=== PATIENT | male | born 1955 | race Caucasian/White ===

== ENCOUNTER 2020-09-24 08:58 | Outpatient (REF) | payer MEDICARE, MEDICAID, SELFPAY ==
--- NOTE | ~2020-09-24 | MM_ITS ---
EXAMINATION: BONE DENSITOMETRY CLINICAL INDICATION: Screening for osteoporosis. COMPARISON: None (current study represents initial baseline exam). TECHNIQUE: Using a [employer] DXA System (software version: 13.1) manufactured by [employer], dual-energy x-ray absorptiometry was performed of the lumbar spine and left hip. The images are of good technical quality. The image of the left hip has a small high attenuation round artifact left pelvis above the area of measurement. This corresponds to a snap on clothing, confirmed by technologist. Summary results are attached. FINDINGS: AP SPINE L1-L4: BMD 1.559 g/cm2, Z-score 3.2, T-score 2.8, normal. LEFT FEMUR, NECK: BMD 0.931 g/cm2, Z-score 0.0, T-score -1.1, osteopenia. LEFT FEMUR, TOTAL: BMD 1.046 g/cm2, Z-score 0.2, T-score -0.4, normal. IDENTIFIED RISK FACTORS: Height loss, history of fracture (adult). HISTORY OF FRACTURE: Lower leg. MEDICATIONS: Bisphosphonate. MM/XR DEXA axial skeleton IMPRESSION: 1. DIAGNOSIS: Osteopenia based on the lowest T-score value of -1.1 in the femoral neck applying World Health Organization criteria. 2. 10-YEAR FRACTURE RISK PREDICTION, FRAX: Major osteoporotic fracture (clinical spine, forearm, hip or shoulder) 9.0%. Hip fracture 1.2%. 3. Treatment Recommendations: NOF guidelines recommend consideration for treatment in postmenopausal women and men age 50 and older presenting with the following: -A hip or vertebral (clinical or morphometric) fracture. -T-score less than or equal to -2.5 at the femoral neck or spine after appropriate evaluation to exclude secondary causes. -Low bone mass at the hip or spine and a 10-year fracture probability by FRAX of greater than or equal to 3% for hip fracture or greater than or equal to 20% for major osteoporotic fracture based on the [place] adapted WHO algorithm. 4. Other Recommendations: All treatment decisions require clinical judgment and consideration of individual patient factors, including patient preferences, comorbidities, previous drug use, risk factors not captured in the FRAX model (e.g. frailty, falls, vitamin D deficiency, increased bone turnover, interval significant decline in bone density) and possible under or overestimation of fracture risk by FRAX. Additional medical evaluation for secondary cause of low bone mineral density may be appropriate. FUTURE SCAN RECOMMENDATION: People with diagnosed cases of osteoporosis or at high risk for fracture should have regular bone mineral density tests. For patients eligible for Medicare, routine testing is allowed once every 2 years. The testing frequency can be increased to one year for patients who have rapidly progressing disease, those who are receiving or discontinuing medical therapy to restore bone mass, or have additional risk factors.
== END 2020-09-24 08:59 | disposition home or self-care (01) ==
LOC: HO.MAMMO 08:58
PROVIDERS: Visit Provider Internal Medicine Geriatric Medicine
DX: Z13.820 Encounter for screening for osteoporosis (principal); M81.0 Age-related osteoporosis without current pathological fracture; M85.80 Other specified disorders of bone density and structure, unspecified site; Z79.899 Other long term (current) drug therapy; Z87.81 Personal history of (healed) traumatic fracture
CPT/HCPCS: 77080

== ENCOUNTER 2022-09-26 08:37 | Outpatient (REF) | payer MEDICARE, MEDICAID, SELFPAY ==
--- NOTE | ~2022-09-26 | MM_ITS ---
EXAMINATION: BONE DENSITOMETRY CLINICAL INDICATION: Osteoporosis. COMPARISON: Baseline BD dated 09/24/2020. TECHNIQUE: Using a [employer] DXA System (software version: 13.1) manufactured by [employer], dual-energy x-ray absorptiometry was performed of the lumbar spine and left hip. The images are of good technical quality. Summary results are attached. FINDINGS: AP SPINE L1-L3 (excluding L4): The data of L1-L4 has been changed to exclude the L4 vertebral body, because degenerative changes at this level may cause overestimation of lumbar spine density. Current: BMD 1.491 g/cm2, Z-score 2.8, T-score 2.3, normal, 0.3% increase from baseline (<5% change is not significant). Baseline: BMD 1.487 g/cm2. LEFT FEMUR, NECK: Current: BMD 0.965 g/cm2, Z-score 0.4, T-score -0.8, normal. Baseline: BMD 0.931 g/cm2. LEFT FEMUR, TOTAL: Current: BMD 1.040 g/cm2, Z-score 0.2, T-score -0.4, normal, 0.6% decrease from baseline (<5% change is not significant). Baseline: BMD 1.046 g/cm2. IDENTIFIED RISK FACTORS: History of fracture (adult). HISTORY OF FRACTURE: Lower leg. MEDICATIONS: None listed. MM/XR DEXA axial skeleton IMPRESSION: 1. DIAGNOSIS: Normal bone density based on the lowest T-score value of -0.8 in the femoral neck applying World Health Organization criteria. 2. 10-YEAR FRACTURE RISK PREDICTION, FRAX: According to the guidelines, FRAX calculation should only be performed on patients in the osteopenia bone density category. Therefore, FRAX was not performed on this patient. 3. Treatment Recommendations: NOF guidelines recommend consideration for treatment in postmenopausal women and men age 50 and older presenting with the following: -A hip or vertebral (clinical or morphometric) fracture. -T-score less than or equal to -2.5 at the femoral neck or spine after appropriate evaluation to exclude secondary causes. -Low bone mass at the hip or spine and a 10-year fracture probability by FRAX of greater than or equal to 3% for hip fracture or greater than or equal to 20% for major osteoporotic fracture based on the [place] adapted WHO algorithm. 4. Other Recommendations: All treatment decisions require clinical judgment and consideration of individual patient factors, including patient preferences, comorbidities, previous drug use, risk factors not captured in the FRAX model (e.g. frailty, falls, vitamin D deficiency, increased bone turnover, interval significant decline in bone density) and possible under or overestimation of fracture risk by FRAX. FUTURE SCAN RECOMMENDATION: People with diagnosed cases of osteoporosis or at high risk for fracture should have regular bone mineral density tests. For patients eligible for Medicare, routine testing is allowed once every 2 years. The testing frequency can be increased to one year for patients who have rapidly progressing disease, those who are receiving or discontinuing medical therapy to restore bone mass, or have additional risk factors.
== END 2022-09-26 08:38 | disposition home or self-care (01) ==
LOC: HO.MAMMO 08:37
PROVIDERS: PCP Internal Medicine Geriatric Medicine; Visit Provider Internal Medicine Geriatric Medicine
DX: M81.0 Age-related osteoporosis without current pathological fracture (principal)
CPT/HCPCS: 77080

== ENCOUNTER 2022-12-22 09:27 | Outpatient (REF) | payer MEDICARE, MEDICAID, SELFPAY ==
--- NOTE | ~2022-12-22 | XR_ITS ---
EXAMINATION: XR CERVICAL SPINE CLINICAL INFORMATION: Neck pain. COMPARISON: None available. TECHNIQUE: 5 views of the cervical spine were obtained. FINDINGS: There is mild straightening of cervical lordosis. The vertebral heights and alignment is normal. On oblique views there is mild narrowing of right neural foramina from C3-C4 through C5-C6 disc levels. Also visualized is mild narrowing of C3-C4 and and C5-C6 left neural foramina. There is bilateral mild facet joint arthropathy at C2-C3, right C3-C4, moderate left C5-C6 and and moderate right C6-C7 disc levels. No visible acute fracture, dislocation or subluxation seen. The craniovertebral junction and the C2-C3 alignment is normal. The prevertebral soft tissues are normal. XR/XR cervical spine 4V IMPRESSION: Degenerative facet joint arthropathy and narrowing of neural foramina as described above. No visible acute fracture or dislocation seen.
== END 2022-12-22 09:28 | disposition home or self-care (01) ==
LOC: HO.HHCX 09:27
PROVIDERS: Visit Provider Internal Medicine Geriatric Medicine
DX: M54.2 Cervicalgia (principal)
CPT/HCPCS: 72050

== ENCOUNTER 2023-01-01 10:53 | Outpatient (REF) | payer MEDICARE, MEDICAID, SELFPAY ==
[2023-01-02 12:53] LABS: Free Prostate Spec Ag 0.7 ng/mL; Percent Free Prostate Spec Ag 15 % (calc) (>25); Prostate Specific Ag Total 4.6 ng/mL (< OR = 4.0)
== END 2023-01-01 10:54 | disposition home or self-care (01) ==
LOC: HO.CHCLDS 10:53
PROVIDERS: Absent Provider Internal Medicine Geriatric Medicine; PCP Internal Medicine; Visit Provider Urology
DX: Z12.5 Encounter for screening for malignant neoplasm of prostate (principal); R97.20 Elevated prostate specific antigen [PSA]
CPT/HCPCS: 36415; 84154

== ENCOUNTER 2023-01-09 10:59 | Outpatient (REF) | payer MEDICARE, MEDICAID, SELFPAY ==
[2023-01-09 17:59] LABS: MANUAL DIFF FLAG NO
[2023-01-09 18:05] LABS: Basophils Percent Auto 0.8 % (0-2); Eosinophils Absolute Auto 0.2 X10*3/uL (0.0-0.4); Eosinophils Percent Auto 2.9 % (0-4); Hematocrit 46.6 % (42.0-52.0); Hemoglobin 15.9 g/dl (14.0-18.0); Imm Gran Abs Auto 0.01 X10*3/uL (0.00-0.03); Imm Gran Pct Auto 0.2 % (0.0-0.4); Lymphocytes Percent Auto 19.3 % (20-40); Mean Corpuscular HGB Conc 34.1 g/dl (31.0-36.0); Mean Corpuscular Hemoglobin 31.8 pg (27.0-33.0); Mean Corpuscular Volume 93.2 fL (80.0-98.0); Mean Platelet Volume 9.9 fL (9.4-12.4); Monocytes Absolute Auto 0.4 X10*3/uL (0.1-1.2); Monocytes Percent Auto 6.9 % (2-11); Neutrophils Absolute Auto 3.7 x10*3/uL (2.0-8.3); Neutrophils Percent Auto 69.9 % (45-73); Platelet Count 171 X10*3/uL (160-400); Red Cell Distribution Width 12.2 % (11.0-16.0); White Blood Count 5.2 X10*3/uL (4.8-10.8)
[2023-01-09 18:15] LABS: Alanine Aminotransferase 27 U/L (0-40); Albumin Level 4.1 g/dL (3.5-5.0); Alkaline Phosphatase 89 U/L (39-117); Anion Gap 8 (12-20); Aspartate Amino Transferase 20 U/L (5-37); Bilirubin Total 0.4 mg/dL (0.0-1.0); Blood Urea Nitrogen 14 mg/dL (9-16); Calcium 9.4 mg/dL (8.4-10.2); Carbon Dioxide 25 mmol/L (22-29); Chloride 111 mmol/L (96-108); Estimated Glomerular Filt Rate > 60; Glucose Fasting 123 mg/dL (60-99); Potassium 4.2 mmol/L (3.3-5.1); Sodium 140 mmol/L (135-145)
[2023-01-11 10:42] LABS: Absolute CD4 Count 404 cells/uL (490-1740); Absolute CD8 Count 103 cells/uL (180-1170); Absolute Lymphocytes 759 cells/uL (850-3900); CD4 CD8 Ratio 3.93 (0.86-5.00); Percent CD4 Cells 53 % (30-61); Percent CD8 Cells 14 % (12-42)
== END 2023-01-09 11:00 | disposition home or self-care (01) ==
LOC: HO.CHCLDS 10:59
PROVIDERS: Visit Provider Internal Medicine
DX: B20 Human immunodeficiency virus [HIV] disease (principal)
CPT/HCPCS: 36415; 80053; 85025; 86360

== ENCOUNTER 2023-02-19 10:19 | Outpatient (REF) | payer MEDICARE, MEDICAID, SELFPAY ==
[2023-02-19 14:07] LABS: MANUAL DIFF FLAG NO
[2023-02-19 14:16] LABS: Basophils Percent Auto 0.6 % (0-2); Eosinophils Absolute Auto 0.1 X10*3/uL (0.0-0.4); Eosinophils Percent Auto 2.8 % (0-4); Hematocrit 47.5 % (42.0-52.0); Hemoglobin 15.8 g/dl (14.0-18.0); Imm Gran Abs Auto 0.01 X10*3/uL (0.00-0.03); Imm Gran Pct Auto 0.2 % (0.0-0.4); Lymphocytes Absolute Auto 0.9 X10*3/uL (1.2-4.9); Lymphocytes Percent Auto 19.9 % (20-40); Mean Corpuscular HGB Conc 33.3 g/dl (31.0-36.0); Mean Corpuscular Hemoglobin 31.5 pg (27.0-33.0); Mean Corpuscular Volume 94.8 fL (80.0-98.0); Monocytes Absolute Auto 0.3 X10*3/uL (0.1-1.2); Monocytes Percent Auto 6.3 % (2-11); Neutrophils Absolute Auto 3.2 x10*3/uL (2.0-8.3); Neutrophils Percent Auto 70.2 % (45-73); Platelet Count 159 X10*3/uL (160-400); Red Blood Count 5.01 X10*6/uL (4.60-5.80); Red Cell Distribution Width 12.5 % (11.0-16.0); White Blood Count 4.6 X10*3/uL (4.8-10.8)
[2023-02-19 14:34] LABS: Alanine Aminotransferase 26 U/L (0-40); Albumin Level 4.3 g/dL (3.5-5.0); Alkaline Phosphatase 61 U/L (39-117); Anion Gap 16 (12-20); Aspartate Amino Transferase 19 U/L (5-37); Bilirubin Total 0.5 mg/dL (0.0-1.0); Blood Urea Nitrogen 17 mg/dL (9-16); Calcium 9.3 mg/dL (8.4-10.2); Carbon Dioxide 23 mmol/L (22-29); Chloride 110 mmol/L (96-108); Estimated Glomerular Filt Rate > 60; Glucose Fasting 106 mg/dL (60-99); Potassium 3.7 mmol/L (3.3-5.1); Sodium 145 mmol/L (135-145); Total Protein 7.2 g/dL (6.5-8.0)
[2023-02-20 10:38] LABS: Absolute CD4 Count 550 cells/uL (490-1740); Absolute CD8 Count 136 cells/uL (180-1170); Absolute Lymphocytes 899 cells/uL (850-3900); CD4 CD8 Ratio 4.05 (0.86-5.00); Percent CD4 Cells 61 % (30-61); Percent CD8 Cells 15 % (12-42)
[2023-02-21 16:39] LABS: HIV RNA PCR Qn Copies <20 Copies/mL; HIV RNA PCR Qn Log Copies <1.30 Log cps/mL
== END 2023-02-19 10:20 | disposition home or self-care (01) ==
LOC: HO.CHCLDS 10:19
PROVIDERS: Visit Provider Internal Medicine
DX: B20 Human immunodeficiency virus [HIV] disease (principal)
CPT/HCPCS: 36415; 80053; 85025; 86360; 87536; 87900

== ENCOUNTER 2023-07-11 10:09 | Outpatient (REF) | payer MEDICARE, MEDICAID, SELFPAY ==
[2023-07-11 13:26] LABS: Alanine Aminotransferase 34 U/L (0-40); Albumin Level 4.3 g/dL (3.5-5.0); Alkaline Phosphatase 65 U/L (39-117); Anion Gap 9 (12-20); Aspartate Amino Transferase 21 U/L (5-37); Bilirubin Total 0.5 mg/dL (0.0-1.0); Blood Urea Nitrogen 17 mg/dL (9-16); Calcium 9.3 mg/dL (8.4-10.2); Carbon Dioxide 27 mmol/L (22-29); Chloride 109 mmol/L (96-108); Cholesterol 191 mg/dL (<200); Estimated Glomerular Filt Rate > 60; Glucose Random 105 mg/dL (60-115); HDL Cholesterol 30 mg/dL (>40); LDL Cholesterol Calculated 124 mg/dL (<100); Potassium 3.8 mmol/L (3.3-5.1); Sodium 141 mmol/L (135-145); Total Protein 7.3 g/dL (6.5-8.0); Triglycerides 188 mg/dL (<150)
== END 2023-07-11 10:10 | disposition home or self-care (01) ==
LOC: HO.CHCLDS 10:09
PROVIDERS: Visit Provider Internal Medicine Geriatric Medicine
DX: E78.00 Pure hypercholesterolemia, unspecified (principal)
CPT/HCPCS: 36415; 80053; 80061

== ENCOUNTER 2023-07-24 09:36 | Outpatient (REF) | payer MEDICARE, MEDICAID, SELFPAY ==
[2023-07-24 13:53] LABS: MANUAL DIFF FLAG NO
[2023-07-24 13:55] LABS: Basophils Percent Auto 0.9 % (0-2); Eosinophils Absolute Auto 0.1 X10*3/uL (0.0-0.4); Eosinophils Percent Auto 2.6 % (0-4); Hematocrit 47.5 % (42.0-52.0); Hemoglobin 16.1 g/dl (14.0-18.0); Imm Gran Abs Auto 0.01 X10*3/uL (0.00-0.03); Imm Gran Pct Auto 0.2 % (0.0-0.4); Lymphocytes Percent Auto 20.7 % (20-40); Mean Corpuscular HGB Conc 33.9 g/dl (31.0-36.0); Mean Corpuscular Hemoglobin 31.8 pg (27.0-33.0); Mean Corpuscular Volume 93.7 fL (80.0-98.0); Mean Platelet Volume 10.1 fL (9.4-12.4); Monocytes Absolute Auto 0.3 X10*3/uL (0.1-1.2); Monocytes Percent Auto 6.4 % (2-11); Neutrophils Absolute Auto 3.2 x10*3/uL (2.0-8.3); Neutrophils Percent Auto 69.2 % (45-73); Platelet Count 172 X10*3/uL (160-400); Red Blood Count 5.07 X10*6/uL (4.60-5.80); Red Cell Distribution Width 12.8 % (11.0-16.0); White Blood Count 4.7 X10*3/uL (4.8-10.8)
[2023-07-24 14:10] LABS: Alanine Aminotransferase 60 U/L (0-40); Albumin Level 4.4 g/dL (3.5-5.0); Alkaline Phosphatase 72 U/L (39-117); Anion Gap 13 (12-20); Aspartate Amino Transferase 35 U/L (5-37); Bilirubin Total 0.3 mg/dL (0.0-1.0); Blood Urea Nitrogen 19 mg/dL (9-16); Calcium 9.5 mg/dL (8.4-10.2); Carbon Dioxide 27 mmol/L (22-29); Chloride 110 mmol/L (96-108); Estimated Glomerular Filt Rate > 60; Glucose Random 98 mg/dL (60-115); Potassium 3.6 mmol/L (3.3-5.1); Sodium 146 mmol/L (135-145); Total Protein 7.3 g/dL (6.5-8.0)
[2023-07-24 15:43] LABS: CT PCR NOT DETECTED (Not Detect.); NG PCR NOT DETECTED (Not Detect.)
[2023-07-25 07:49] LABS: ~Hepatitis C Antibody Nonreactive (Nonreactive)
[2023-07-25 07:51] LABS: Syphilis Screen Nonreactive (Nonreactive)
[2023-07-26 10:54] LABS: Absolute CD3 Count 629 cells/uL (840-3060); Absolute CD4 Count 494 cells/uL (490-1740); Absolute CD8 Count 138 cells/uL (180-1170); Absolute Lymphocytes 961 cells/uL (850-3900); CD4 CD8 Ratio 3.57 (0.86-5.00); Percent CD3 Cells 65 % (57-85); Percent CD4 Cells 51 % (30-61); Percent CD8 Cells 14 % (12-42)
[2023-07-27 08:04] LABS: TS Negative Control Passed; TS Panel A 0; TS Panel B 0; TS Positive Control Passed; TSpotTB Negative (Negative)
[2023-07-27 11:28] LABS: HIV RNA PCR Qn Copies NOT DETECTED copies/mL (NOT DETECTED); HIV RNA PCR Qn Log Copies NOT DETECTED (NOT DETECTED)
== END 2023-07-24 09:37 | disposition home or self-care (01) ==
LOC: HO.CHCLDS 09:36
PROVIDERS: Internal Medicine Geriatric Medicine; Visit Provider Internal Medicine
DX: B20 Human immunodeficiency virus [HIV] disease (principal)
CPT/HCPCS: 0353U; 36415; 80053; 85025; 86359; 86360; 86481; 86780; 86803; 87536

== ENCOUNTER → 2023-10-09 09:52 | Outpatient (BNVA) | payer MEDICARE, SELFPAY | PROVIDERS: PCP Internal Medicine; Visit Provider Nurse Practitioner ==

== ENCOUNTER 2023-12-28 12:38 | Outpatient (REF) | payer MEDICARE, SELFPAY ==
[2023-12-31 11:28] LABS: Free Prostate Spec Ag 1.3 ng/mL; Percent Free Prostate Spec Ag 17 % (calc) (>25); Prostate Specific Ag Total 7.7 ng/mL (< OR = 4.0)
== END 2023-12-28 12:39 | disposition home or self-care (01) ==
LOC: HO.CHCLDS 12:38
PROVIDERS: Visit Provider Urology
DX: R97.20 Elevated prostate specific antigen [PSA] (principal)
CPT/HCPCS: 36415; 84154

== ENCOUNTER 2024-01-16 13:00 | Emergency (ER) | payer MEDICARE, SELFPAY ==
--- NOTE | 2024-01-16 13:03 | ED.URI ---
HPI - URI/Sore Throat General Chief Complaint: General Medical Stated Complaint: sore throat Time Seen by Provider: 01/16/24 13:06 Source: patient, RN notes reviewed and old records reviewed Mode of arrival: ambulatory History of Present Illness ED Provider: Pau Floyd PA-C HPI Narrative: 68-year-old male with a past medical history gout, GERD, depression, anxiety, HLD, HTN, HIV, presenting to the ED c/o sore throat x 1 week w/painful swallowing. Admits to COVID-19 positive contacts. denies cough, SOB, CP, inability/difficulty swallowing, cough. MD elicited complaint: sore throat Related Data Home Medications ?Medication ?Instructions ?Recorded ?Confirmed bictegravir 50 mg-emtricitabine 1 tab PO QAM 10/09/23 200 mg-tenofovir alafenam 25 mg tablet (Biktarvy) cholecalciferol (vitamin D3) 50 50 mcg PO DAILY 10/09/23 mcg (2,000 unit) capsule clonazepam 0.5 mg tablet 0.5 mg PO DAILY 10/09/23 cyclobenzaprine 10 mg tablet 10 mg PO TID 10/09/23 fluvastatin 20 mg capsule 20 mg PO DAILY 10/09/23 hydrochlorothiazide 12.5 mg tablet 12.5 mg PO DAILY 10/09/23 losartan 100 mg tablet 100 mg PO DAILY 10/09/23 omeprazole 20 mg capsule,delayed 20 mg PO DAILY 10/09/23 release sildenafil 100 mg tablet (Viagra) 100 mg PO DAILY PRN 10/09/23 Previous Rx's ?Medication ?Instructions ?Recorded bisacodyl 5 mg tablet,delayed 10 mg (2 x 5 mg) PO BEDTIME 2 days 10/09/23 release (Dulcolax (bisacodyl)) #4 tabs peg 3350-electrolytes 236 240 ml PO Q10M 1 day #4,000 mL 10/09/23 gram-22.74 gram-6.74 gram-5.86 gram solution (Golytely) amoxicillin 875 mg-potassium 1 tab PO BID 7 days #14 tabs 01/16/24 clavulanate 125 mg tablet Allergies Allergy/AdvReac Type Severity Reaction Status Date / Time No Known Drug Allergies Allergy Unknown none Verified 01/16/24 13:06 Review of Systems Review of Systems: Yes all other systems are reviewed and are negative Constitutional: Constitutional: Reports as per [facility] Past Medical History Attestation statement: The following information was validated with the patient. Source: old records reviewed Surgical History H/O colonoscopy S/P TURP Social History Social History Alcohol intake: current Alcohol intake frequency: holidays/special occasions only Alcohol type: beer Patient Tobacco Use Status: Never used Tobacco Advance Directives: Yes Advance Directives Information Provided: No Advance Directives on File: No Physical Exam Vital Signs: Vital Signs: Last Vital Signs Temp 98 F 01/16/24 14:59 Pulse 89 01/16/24 14:59 Resp 19 01/16/24 14:59 BP 178/79 H 01/16/24 14:59 Pulse Ox 98 01/16/24 14:59 O2 Del Method Room Air 01/16/24 14:59 BMI result Body Mass Index 26.6 Const: General: cooperative, healthy appearing and no acute distress Orientation/consciousness: patient oriented x3 Limitations: no limitations HEENT: Head: Yes normal to inspection and Yes atraumatic Ears: hearing grossly normal bilaterally and mastoids normal General nose exam: Normal external nose present Face and sinus: Yes normal facial exam Throat: Yes uvula midline, Yes abnormal tonsil (erythema, swelling, no exudates), No peritonsillar mass, Yes posterior oropharynx abnormal (Erythematous, mild swelling), No uvula laterally displaced and No uvular edema Eyes: General: appearance normal, both eyes and all related structures EOM: EOMs intact bilaterally Neck: Neck: Yes normal visual inspection, Yes no meningeal signs and No anterior neck swelling Resp: Effort & Inspection: normal respiratory effort, no respiratory distress and no stridor Cardio: Rate: regular rate Skin: Rashes: no rashes Wounds: no wounds Neuro: General: patient oriented x3, tone normal and no meningeal signs Cranial nerves: Yes CN's II-XII intact bilaterally Gait exam (Neuro): Normal gait present Extrem: General: Yes normal to inspection Course Course Course Narrative: -[id number]--rapid strep, COVID/flu/RSV negative. However clinically patient with strep pharyngitis will treat with antibiotics Results discussed with patient including worrisome signs and symptoms and strict return precautions, and when to return to the emergency department. They verbalized understanding and feel safe for discharge at this time. Medical Decision Making Medical Decision Making [facility] Narrative: 68-year-old male with a past medical history gout, GERD, depression, anxiety, HLD, HTN, HIV, presenting to the ED c/o sore throat x 1 week w/painful swallowing. On exam HTNsive, +posterior oropharyngeal erythema w/tonsilar erythema and swelling, no exudates, uvula midline. No resp distress, handling secretions. Concern for strep pharyngitis vs viral syndrome. No evidence of CONFIGURATION MANAGEMENT SPECIALIST/retropharyngeal abscess. Plan: Rapid strep, viral testing Please refer to course for remaining clinical decision making, interpretation of labs/imaging results, and discussions with consultants and/or family members. Differential Diagnosis Differential Diagnoses: The differential diagnosis associated with the presentation includes As above Lab Data [facility] Lab Attestation statement: I reviewed the patient's lab results. Labs: Lab Results 01/16/24 Range/Units 13:14 Influenza Type A (PCR) NEGATIVE (Negative) Influenza Type B (PCR) NEGATIVE (Negative) RSV RNA Qual (PCR) NEGATIVE (Negative) SARS-CoV-2 RNA (RT-PCR) NEGATIVE (Negative) S. pyogenes GrpA JULIO C Negative (Negative) External Record Review External record reviewed: Inpatient record, Office record, Outpatient record, Prior outpatient labs, Prior outpatient radiology, Primary care record and Outside ED record Tests considered The following testing was considered but not selected: As above Prescription Management I considered prescription management with: Pain Medication and Antibiotic Discharge Plan Discharge Clinical Impression: Pharyngitis Patient Disposition: Home, Self-Care Instructions: Pharyngitis (ED) Additional Instructions: You tested negative for COVID, flu, RSV, and strep throat, however your throat looks infected. Augmentin as an antibiotic please take as prescribed Gargle with warm salt water new line take Tylenol /Motrin as needed If symptoms persist or worsen return to the ED Prescriptions: New amoxicillin-pot clavulanate 875-125 mg tablet 1 tab PO BID 7 Days Qty: 14 0RF No Action peg 3350-electrolytes [Golytely] 236-22.74-6.74 -5.86 gram recon soln 240 ml PO Q10M 1 Days Qty: 4000 0RF Rx Instructions: until fecal effluent is clear; do not exceed a total volume of 2,000 mL bisacodyl [Dulcolax (bisacodyl)] 5 mg tablet,delayed release (DR/EC) 10 mg PO BEDTIME 2 Days Qty: 4 0RF Biktarvy 50-200-25 mg tablet 1 tab PO QAM omeprazole 20 mg capsule,delayed release(DR/EC) 20 mg PO DAILY hydrochlorothiazide 12.5 mg tablet 12.5 mg PO DAILY losartan 100 mg tablet 100 mg PO DAILY clonazepam 0.5 mg tablet 0.5 mg PO DAILY cholecalciferol (vitamin D3) 50 mcg (2,000 unit) capsule 50 mcg PO DAILY fluvastatin 20 mg capsule 20 mg PO DAILY sildenafil [Viagra] 100 mg tablet 100 mg PO DAILY PRN cyclobenzaprine 10 mg tablet 10 mg PO TID Referrals: Venita,MD Federico [Primary Care Provider] - Interventions: ED Discharge Assessment Last Done: 01/16/24 14:59 Discharge Date/Time: 01/16/24 15:05 Print Language: Indonesian
[2024-01-16 13:04] VITALS: BP 174/106; PULSE 89; RESP 19; TEMP 36.6; O2SAT 98; BMI 26.6
[2024-01-16 13:45] LABS: IDNOW Serial# 08D9AD1C; Strep A Nucleic Acid Negative (Negative)
[2024-01-16 14:04] LABS: Influenza A PCR NEGATIVE (Negative); Influenza B PCR NEGATIVE (Negative); Resp Syncy Virus RNA Qual PCR NEGATIVE (Negative); SARS COV2 PCR INHOUSE NEGATIVE (Negative)
[2024-01-16 14:59] VITALS: BP 178/79; PULSE 89; RESP 19; TEMP 36.6; O2SAT 98
== END 2024-01-16 15:05 | disposition home or self-care (01) ==
LOC: HO.ED 15:02
PROVIDERS: Physician Assistant; Emergency Provider Student in an Organized Health Care Education/Training Program; PCP Internal Medicine Geriatric Medicine
DX: J02.9 Acute pharyngitis, unspecified (principal); Z79.899 Other long term (current) drug therapy; Z03.818 Encounter for observation for suspected exposure to other biological agents ruled out; B20 Human immunodeficiency virus [HIV] disease; I10 Essential (primary) hypertension; E78.00 Pure hypercholesterolemia, unspecified
CPT/HCPCS: 0241U; 87651; 99282; 99283

== ENCOUNTER 2024-02-11 11:00 | Outpatient (REF) | payer MEDICARE, SELFPAY ==
[2024-02-11 11:30] LABS: MANUAL DIFF FLAG NO
[2024-02-11 12:26] LABS: Basophils Percent Auto 0.5 % (0-2); Eosinophils Absolute Auto 0.2 X10*3/uL (0.0-0.4); Eosinophils Percent Auto 3.4 % (0-4); Hematocrit 46.3 % (42.0-52.0); Hemoglobin 15.7 g/dl (14.0-18.0); Imm Gran Abs Auto 0.02 X10*3/uL (0.00-0.03); Imm Gran Pct Auto 0.5 % (0.0-0.4); Lymphocytes Absolute Auto 0.9 X10*3/uL (1.2-4.9); Lymphocytes Percent Auto 19.3 % (20-40); Mean Corpuscular HGB Conc 33.9 g/dl (31.0-36.0); Mean Corpuscular Hemoglobin 31.5 pg (27.0-33.0); Mean Corpuscular Volume 92.8 fL (80.0-98.0); Mean Platelet Volume 9.8 fL (9.4-12.4); Monocytes Absolute Auto 0.3 X10*3/uL (0.1-1.2); Neutrophils Absolute Auto 3.1 x10*3/uL (2.0-8.3); Neutrophils Percent Auto 69.3 % (45-73); Platelet Count 141 X10*3/uL (160-400); Red Blood Count 4.99 X10*6/uL (4.60-5.80); Red Cell Distribution Width 12.4 % (11.0-16.0); White Blood Count 4.4 X10*3/uL (4.8-10.8)
[2024-02-11 12:43] LABS: Estimated Average Glucose 117 mg/dL; Hemoglobin A1C 147.0321 umol/L; Hemoglobin A1c % 5.7 % (<6.0); Total Hemoglobin (HGBA1C) 3844.4709 umol/L
[2024-02-11 12:58] LABS: Alanine Aminotransferase 61 U/L (0-40); Albumin Level 4.3 g/dL (3.5-5.0); Alkaline Phosphatase 63 U/L (39-117); Anion Gap 10 (12-20); Aspartate Amino Transferase 39 U/L (5-37); Bilirubin Total 0.5 mg/dL (0.0-1.0); Blood Urea Nitrogen 18 mg/dL (9-16); Calcium 9.9 mg/dL (8.4-10.2); Carbon Dioxide 29 mmol/L (22-29); Chloride 107 mmol/L (96-108); Estimated Glomerular Filt Rate 58; Glucose Random 108 mg/dL (60-115); Potassium 3.8 mmol/L (3.3-5.1); Sodium 142 mmol/L (135-145)
[2024-02-11 13:17] LABS: Hepatitis A Antibody IgG REACTIVE (Nonreactive); ~Hepatitis A Antibody IgG 11.61 S/CO (0.00-0.99)
[2024-02-11 13:19] LABS: HBS Num1 0.09 mIU/mL (0-7.99); HBc Num1 0.12 S/CO (0.00-0.79); HBsAGNum1 0.45 S/CO (0.00-0.99); Hepatitis B Core Antibody Nonreactive (Nonreactive); Hepatitis B Surface Antigen Negative (Negative); ~Hepatitis B Surface Antibody NONREACTIVE (Nonreactive)
[2024-02-12 11:34] LABS: Free Prostate Spec Ag 1.2 ng/mL; Percent Free Prostate Spec Ag 16 % (calc) (>25); Prostate Specific Ag Total 7.5 ng/mL (< OR = 4.0)
[2024-02-12 13:12] LABS: HIV RNA PCR Qn Copies NOT DETECTED copies/mL (NOT DETECTED); HIV RNA PCR Qn Log Copies NOT DETECTED (NOT DETECTED)
[2024-02-12 18:54] LABS: Rubeola IgG (Measles) >300.00 AU/mL
[2024-02-15 14:48] LABS: Toxoplasma IgG Antibody <7.20 IU/mL; Toxoplasma IgM Antibody <8.00 AU/mL
[2024-02-15 18:24] LABS: Absolute CD3 Count 660 cells/uL (840-3060); Absolute CD4 Count 534 cells/uL (490-1740); Absolute CD8 Count 144 cells/uL (180-1170); Absolute Lymphocytes 820 cells/uL (850-3900); Percent CD3 Cells 81 % (57-85); Percent CD4 Cells 65 % (30-61); Percent CD8 Cells 18 % (12-42)
== END 2024-02-11 11:01 | disposition home or self-care (01) ==
LOC: HO.LAB 11:00
PROVIDERS: Absent Provider Urology; PCP Internal Medicine Geriatric Medicine; Visit Provider Internal Medicine
DX: B20 Human immunodeficiency virus [HIV] disease (principal); R97.20 Elevated prostate specific antigen [PSA]; Z13.1 Encounter for screening for diabetes mellitus
CPT/HCPCS: 36415; 80053; 83036; 84154; 85025; 86359; 86360; 86704; 86706; 86708; 86735; 86762; 86765; 86777; 86778; 86787; 87340; 87536

== ENCOUNTER 2024-03-04 08:42 | Day surgery (SDC) | payer MEDICARE, SELFPAY ==
[2024-02-29 14:57] VITALS: BMI 27.8
[2024-03-04 09:18] VITALS: BMI 27.1
[2024-03-04 09:22] VITALS: BP 179/100; PULSE 87; RESP 15; TEMP 36.9; O2SAT 97
[2024-03-04] MEDS: Lactated Ringers 1,000 ML 50 ML IVCONT (09:31)
--- NOTE | 2024-03-04 10:30 | P.HPSUR_ITS ---
Pre-Procedural Eval Section A - 24 Hr Update-Section A only Date of Service: 03/04/24 Section B - Complete if H&P > 30 days Chief Complaint: Family history of colon polyps, Relevant Family History (Specify if Yes): No Relevant Social History: None Present Medications: see Short Stay Collaborative assessment Medical History: Significant History (HIV< BPH, depression, HLP ) History of Previous Operations: Relevant previous surgery/procedure and date(s) (H/O colonoscopy S/P TURP) Allergies: Allergies Allergy/AdvReac Type Severity Reaction Status Date / Time No Known Drug Allergies Allergy Unknown none Verified 03/04/24 09:17 Review of Systems Sugical H&P ROS: Negative: Constitution, Cardiovascular, Respiratory, Neurological, Psychiatric, Hem-Onc, Allergic/Immunologic, Gastrointestinal, Genitourinary, Musculoskeletal, Integumentary, Endocrine and Eyes/E ars/Nose/Throat Exam Surgical H&P Exam: Normal: HEENT, Normal: Heart, Normal: Lungs, Normal: Extremities, Normal: Abdomen, Normal: Skin and Normal: Neurological Plan Diagnosis/Plan: Unchanged I have reviewed the history and physical and performed a pertinent physical examination on my patient. No changes have occurred unless specified. Time Spent With Patient Time: Total time managing care of this patient today ____ minutes.
--- NOTE | 2024-03-04 10:43 | HO.ANESPROP2 ---
HPI - Anesthesia Eval Consult details Narrative: 68M for screening colon PMFSH Active Problems Active Problems: All Active Problems Family history of polyps in the colon (Acute) Pre-op examination (Acute) Erectile dysfunction (Acute) BPH (benign prostatic hyperplasia) (Acute) Gout (Acute) Osteoporosis (Acute) GERD (gastroesophageal reflux disease) (Acute) Depression with anxiety (Acute) High cholesterol (Acute) Hypertension (Acute) HIV disease (Acute) Past Medical History Medical History History of lumbar puncture Depression with anxiety Elevated cholesterol HTN (hypertension) HIV (human immunodeficiency virus infection) Osteoporosis GERD (gastroesophageal reflux disease) Erectile dysfunction BPH (benign prostatic hyperplasia) Family History Family history of problems with anesthesia: No Surgical History Surgical History Hx of right inguinal hernia repair Hx of left inguinal hernia repair Hx of arthroscopy of left knee Hx of excision of mass Hx of prostate biopsy H/O colonoscopy S/P TURP History of Problems with Anesthesia: No Social History Social History Alcohol intake: current Alcohol intake frequency: holidays/special occasions only Alcohol type: beer Patient Tobacco Use Status: Never used Tobacco Use of substances other than those prescribed or required for medical reasons: No Are you DNR?: No Advance Directives: No Advance Directives Information Provided: Yes Recently lost weight without trying: No Meds Allergies Allergy/AdvReac Type Severity Reaction Status Date / Time No Known Drug Allergies Allergy Unknown none Verified 03/04/24 09:17 Active Medications: Current Medications Lactated Ringer's (Lr) 1,000 mls @ 50 mls/hr IVCONT .Q20H MAYANK Last Admin: 03/04/24 09:31 Dose: 50 mls/hr Home Medications ?Medication ?Instructions ?Recorded ?Confirmed ?Last Taken ?Type bictegravir 50 mg-emtricitabine 1 tab PO QAM 10/09/23 03/04/24 Unknown History 200 mg-tenofovir alafenam 25 mg tablet (Biktarvy) cholecalciferol (vitamin D3) 50 50 mcg PO DAILY 10/09/23 03/04/24 Unknown History mcg (2,000 unit) capsule clonazepam 0.5 mg tablet 0.5 mg PO DAILY 10/09/23 03/04/24 Unknown History cyclobenzaprine 10 mg tablet 10 mg PO TID 10/09/23 03/04/24 Unknown History hydrochlorothiazide 12.5 mg tablet 12.5 mg PO DAILY 10/09/23 03/04/24 Unknown History losartan 100 mg tablet 100 mg PO DAILY 10/09/23 03/04/24 Unknown History omeprazole 20 mg capsule,delayed 20 mg PO DAILY 10/09/23 03/04/24 Unknown History release sildenafil 100 mg tablet (Viagra) 100 mg PO DAILY PRN Erectile 10/09/23 03/04/24 Unknown History Dysfunction rosuvastatin 5 mg tablet 5 mg PO DAILY 02/29/24 03/04/24 Unknown History clonazepam 1 mg tablet 1 mg PO BEDTIME PRN Anxiety 03/04/24 03/04/24 Unknown History Exam Height,Weight and Vital Signs: Height 5 ft 8 in Weight 178 lb Last Vital Signs Temp 98.4 F 03/04/24 09:22 Pulse 87 03/04/24 09:22 Resp 15 03/04/24 09:22 BP 179/100 H 03/04/24 09:22 Pulse Ox 97 03/04/24 09:22 O2 Del Method Room Air 03/04/24 09:22 Airway Mallampati Class: II TM Dist: >3cm Neck ROM: Full Loose/Missing/Broken Teeth: Yes Assessment and Plan Assessment Anesthesia Assessment: Anesthesia Plan Discussed and Chart Reviewed Final Anesthetic Review Family History of Problems with Anesthesia: No History of Problems with Anesthesia: No NPO: Yes ASA Class: III Final Preanesthetic Review: No Changes in Pt Med Stat, Meds/Allgs Chart Reviewed, Consent Obtained/Reviewed and Anes Risks/Benef Reviewed Patient Risk: Intermediate Procedure Risk: Low Anesthetic Plan Anesthetic Plan: MAC: Disposition: Standard PACU
--- NOTE | 2024-03-04 11:02 | P.OPN-COLO_ITS ---
Colonoscopy Operative Note Operative Note Date of Service: 03/04/24 Narrative: Operative Information Procedure Description: Colonoscopy Indication: screening Anesthesia: MAC COLONOSCOPY Instrument: Olympus variable stiffness pediatric scope 190L Colonoscopy Monitoring: Vital signs and clinical assessment, continuous EKG monitoring, Pulse oximetry, Carbon Dioxide monitoring and blood pressure monitoring were done throughout the procedure. Colon withdrawal time was 12 minutes. Procedure: The patient was placed in the left lateral decubitis position and pre-procedure medications were administered. After a digital rectal examination of the ano-rectum, the video colonoscope was inserted into the rectum and advanced through the colon to the cecum/TI. The colonoscope was slowly withdrawn in a retrograde panoramic fashion and the colon mucosa was carefully examined including a retroflexed view of the rectum. Findings and interventions are described below. Procedure Difficulty: easy Findings: Terminal Ileum-normal Cecum:normal Ascending Colon: 3-4 mm sessile polyp removed with cold forceps Transverse Colon -normal Descending Colon:normal Sigmoid Colon: moderate diverticulosis Rectum: Retroflexion with small internal hemorrhoids seen, grade I Anorectum - normal Intervention: cold forceps Colon preparation: [place] Bowel Preparation Scale Right colon; 1-2 Transverse colon: 2 Left colon; 2 (0 = Unprepared colon segment with mucosa not seen due to solid stool that cannot be cleared. 1 = Portion of mucosa of the colon segment seen, but other areas of the colon segment not well seen due to staining, residual stool and/or opaque liquid. 2 = Minor amount of residual staining, small fragments of stool and/or opaque liquid, but mucosa of colon segment seen well. 3 = Entire mucosa of colon segment seen well with no residual staining, small fr agments of stool or opaque liquid) Impression and Post Procedure Diagnosis: diverticulosis colon polyp internal hemorrhoids Plan: High fiber diet leaflet Avoid straining at stool, epsom salts and sitz bath, anusol supps or cream Repeat Colonoscopy in 5 years due to some areas of fair prep on the right or earlier if clinically indicated Above findings were reviewed with the patient and relevant handouts were provided if indicated.
[2024-03-04 11:05] VITALS: BP 155/63; PULSE 78; RESP 16; TEMP 36.5; O2SAT 97
[2024-03-04 11:20] VITALS: BP 168/90; PULSE 73; RESP 16; TEMP 36.6; O2SAT 95
== END 2024-03-04 11:50 | disposition home or self-care (01) ==
PROVIDERS: PCP Internal Medicine Geriatric Medicine; Visit Provider Internal Medicine Gastroenterology
PROC: 0DJD8ZZ Inspection of Lower Intestinal Tract, Via Natural or Artificial Opening Endoscopic (ICD-10-PCS; CPT 45378; principal; 2024-03-04 10:40)
DX: Z12.11 Encounter for screening for malignant neoplasm of colon (principal); D12.2 Benign neoplasm of ascending colon; K57.30 Diverticulosis of large intestine without perforation or abscess without bleeding; K64.0 First degree hemorrhoids; Z83.719 Family history of colon polyps, unspecified; B20 Human immunodeficiency virus [HIV] disease; I10 Essential (primary) hypertension; E78.5 Hyperlipidemia, unspecified; K21.9 Gastro-esophageal reflux disease without esophagitis; F41.8 Other specified anxiety disorders; Z79.899 Other long term (current) drug therapy; Z79.02 Long term (current) use of antithrombotics/antiplatelets
CPT/HCPCS: 45380; 88305; J2003; J2704

== ENCOUNTER → 2024-03-04 08:42 | Outpatient (BNV) | payer MEDICARE, SELFPAY | PROVIDERS: PCP Internal Medicine Geriatric Medicine; Visit Provider Internal Medicine Gastroenterology | DX: Z12.11 Encounter for screening for malignant neoplasm of colon (principal); D12.2 Benign neoplasm of ascending colon; K57.30 Diverticulosis of large intestine without perforation or abscess without bleeding; K64.0 First degree hemorrhoids | CPT/HCPCS: 45380 ==

== ENCOUNTER 2024-08-19 10:03 | Outpatient (REF) | payer MEDICARE, SELFPAY ==
--- OUTSIDE RECORDS SUMMARY | 2024-08-19 11:27 | XMS_ITS | Encounter Summary ---
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 - Main Lab [address] [place] [address] Akbar Gonzalez MD [address] [place] [address] Elevated prostate specific antigen (PSA) Social History Tobacco Use Types Packs/Day Years Used Date Smoking Tobacco: Never Assessed Sex and Gender Information Value Date Recorded Sex Assigned at Not on file Legal Sex Male 10:25 AM EST Gender Identity Not on file Sexual Orientation Not on file documented as of this encounter Plan of Treatment Not on file documented as of this encounter Procedures Procedure Name Priority Date/Time Associated Diagnosis Comments AP OUTSIDE CONSULT Routine 04/01/2024 Elevated prostate specific antigen (PSA) documented in this encounter Results * Anatomic pathology outside consult (04/01/2024) Final Diagnosis A. Prostate, Left Middle Malone (Core Biospy): - Benign prostate tissue. B. Prostate, Left Lateral Malone (Core Biospy): - Benign Prostate tissue. C. 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 - Tumor continuously involves 20% of 1 of 1 tissue core. D. Prostate, Left Lateral Middle (Core Biospy): - Prostatic acinar adenocarcinoma, grade group 1, Guadalupe score (3+3=6). - Tumor continuously involves 5% of 1 of 1 tissue core. - High grade prostatic intraepithelial neoplasia (HGPIN). E. Prostate, Left Middle Base (Core Biospy): - Benign prostate tissue. F. Prostate, Left Lateral Base (Core Biospy): - Benign prostate tissue. G. Prostate, Left Peripheral Zone Lesion (Core Biopsy): - Benign prostate tissue. H. Prostate, Left Transition Zone Lesion (Core Biopsy): - Benign prostate tissue. I. Prostate, Right Middle Malone (Core Biospy): - Benign stroma only. J. Prostate, Right Lateral Malone (Core Biospy): - Benign prostate tissue. K. Prostate, Right Middle Middle (Core Biospy): - Benign prostate tissue. L. Prostate, Right Lateral Middle (Core Biospy): - Benign prostate tissue. M. Prostate, Right Middle Base (Core Biospy): - Prostatic acinar adenocarcinoma, grade group 3, Lodi score (4+3=7). - Percentage pattern 4: 70%. - Tumor continuously involves 60% of 1 of 1 tissue core. - PIN4 supports diagnosis. N. Prostate, Right Lateral Base (Core Biospy): - Prostatic acinar adenocarcinoma, grade group 3, Lodi score (4+3=7). - Percentage pattern 4: 30%. - Tumor continuously involves 30% of 1 of 1 tissue core. O. Prostate, Right Peripheral Zone Lesion (Core Biopsy): - Prostatic acinar adenocarcinoma, grade group 3, Lodi score (4+3=7). - Percentage pattern 4: 90%. - Tumor continuously involves 0,0,30% of 1 of 3 tissue cores. - High grade prostatic intraepithelial neoplasia (HGPIN). 04/09/2024 9:26 AM [facility] Comment PIN4 performed at [facility], [address], [place] [address], CLIA # [id number] 04/09/2024 9:26 AM [facility] Clinical Information Elevated PSA R97.20 PSA: 7.5 (02/11/24) [id number] 04/09/2024 9:26 AM [facility] Gross Description A. Prostate, Left Middle Malone Biopsy: Received, properly labeled, are two H and E stained slides and two unstained slides. B. Prostate, Left Lateral Malone Biopsy: Received, properly labeled, are two H and E stained slides and two unstained slides. C. Prostate, Left Middle Middle Biopsy: Received, properly labeled, are two H and E stained slides and two unstained slides. D. Prostate, Left Lateral Middle Biopsy: Received, properly labeled, are two H and E stained slides and two unstained slides. E. Prostate, Left Middle Base Biopsy: Received, properly labeled, are two H and E stained slides and two unstained slides. F. Prostate, Left Lateral Base Biopsy: Received, properly labeled, are two H and E stained slides and two unstained slides. G. Prostate, Left Peripheral Zone Lesion Biopsy: Received, properly labeled, are two H and E stained slides and two unstained slides. H. Prostate, Left Transition Zone Lesion Biopsy: Received, properly labeled, are two H and E stained slides and two unstained slides. I. Prostate, Right Middle Malone Biopsy: Received, properly labeled, are two H and E stained slides and two unstained slides. J. Prostate, Right Lateral Malone Biopsy: Received, properly labeled, are two H and E stained slides and two unstained slides. K. Prostate, Right Middle Middle Biopsy: Received, properly labeled, are two H and E stained slides and two unstained slides. L. Prostate, Right Lateral Middle Biopsy: Received, properly labeled, are two H and E stained slides and two unstained slides. M. Prostate, Right Middle Base Biopsy: Received, properly labeled, are two H and E stained slides and two unstained slides. N. Prostate, Right Lateral Base Biopsy: Received, properly labeled, are two H and E stained slides and two unstained slides. O. Prostate, Right Peripheral Zone Lesion: Received, properly labeled, are two H and E stained slides and two unstained slides. /al 04/09/2024 9:26 AM [facility] Disclaimer Unless otherwise specified, all tissue is 10% NB formalin fixed and paraffin embedded. Technical pathology services provided by [facility] at [address] [place] [address] [address], [place] [address] (CLIA #[id number]/Karen Cantrell MD, Orthopedic Shoe Maker) 04/09/2024 9:26 AM [facility] Tissue Prostate / Unknown 04/01/20242023 3:45 PM EST Tissue specimen (specimen) Prostate / Unknown 04/01/2024 04/02/2024 3: 49 PM EST Tissue specimen (specimen) Prostate / Unknown 04/01/2024 04/02/2024 3: 49 PM EST Tissue specimen (specimen) Prostate / Unknown 04/01/2024 04/02/2024 3: 49 PM EST Tissue specimen (specimen) Prostate / Unknown 04/01/2024 04/02/2024 3: 49 PM EST Tissue specimen (specimen) Prostate / Unknown 04/01/2024 04/02/2024 3: 49 PM EST Tissue specimen (specimen) Prostate / Unknown 04/01/2024 04/02/2024 3: 49 PM EST Tissue specimen (specimen) Prostate / Unknown 04/01/2024 04/02/2024 3: 49 PM EST Tissue specimen (specimen) Prostate / Unknown 04/01/2024 04/02/2024 3: 49 PM EST Tissue specimen (specimen) Prostate / Unknown 04/01/2024 04/02/2024 3: 49 PM EST Tissue specimen (specimen) Prostate / Unknown 04/01/2024 04/02/2024 3: 49 PM EST Tissue specimen (specimen) Prostate / Unknown 04/01/2024 04/02/2024 3: 49 PM EST Tissue specimen (specimen) Prostate / Unknown 04/01/2024 04/02/2024 3: 49 PM EST Tissue specimen (specimen) Prostate / Unknown 04/01/2024 04/02/2024 3: 49 PM EST Tissue specimen (specimen) Prostate / Unknown 04/01/2024 04/02/2024 3: 49 PM EST us Akbar Gonzalez MD LAB PATHOLOGY ORDERABLES Final Result [facility] [address] [place] [address], documented in this encounter Visit Diagnoses Diagnosis Elevated prostate specific antigen (PSA) documented in this encounter
--- OUTSIDE RECORDS SUMMARY | 2024-08-19 11:27 | XMS_ITS | Clinical Summary ---
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 Name Role Phone Unavailable Primary Care Provider Unavailabl e Social History Tobacco Use Types Packs/Day Years Used Date Smoking Tobacco: Never Assessed Sex and Gender Information Value Date Recorded Sex Assigned at Not on file Legal Sex Male 10:25 AM EST Gender Identity Not on file Sexual Orientation Not on file Plan of Treatment Health Maintenance Due Date Last Done Comments Meningococcal ACWY Vaccine (1 - Risk 2-dose series) 1955 COVID-19 Vaccine (#1) 1958 MMR Vaccines (1 of 2 - Risk 2-dose series) 1971 Hepatitis A Vaccines (1 of 2 - Risk 2-dose series) 1972 Zoster Vaccines (1 of 2) 1972 Pneumococcal Vaccine: 50+ Years (2 of 2 - PCV) 02/01/2007 02/01/2006 RSV Immunization Adult Patients (1 - Risk 60-74 years 1-dose series) 2013 DTaP,Tdap,and Td Vaccines (2 - Td or Tdap) 09/16/2018 09/16/2008 Abdominal Aortic Aneurysm (AAA) Screen 04/06/2022 Cholesterol Screening (Lipid Panel) 04/06/2022 Colorectal Cancer Screening: Colonoscopy 04/06/2022 Depression Screening 04/06/2022 Falls Risk Assessment 04/06/2022 Hepatitis C Screening 04/06/2022 Social Influencers of Health Screening 04/06/2022 Hypertension/CHF/CAD Annual BMP Blood Test 04/08/2022 Influenza Vaccine (Season Ended) 2024 01/03/2015, 02/02/2014, 01/07/2013, Additional history exists Hepatitis B Vaccines Completed 07/24/2012, 03/13/2012, 02/13/2012 HIB Vaccines Aged Out No longer eligi ble based on patient's age to complete this topic HPV Vaccines Aged Out No longer eligi ble based on patient's age to complete this topic IPV Vaccines Aged Out No longer eligi ble based on patient's age to complete this topic Meningococcal B Vaccine Aged Out No l onger eligible based on patient's age to complete this topic RSV Immunization Patients Under 20 months Aged Out No longer eligible based on patient's age to complete this topic Varicella Vaccines Aged Out No longer eligible based on patient's age to complete this topic Insurance [employer]
[2024-08-19 14:18] LABS: Appearance Urine Turbid; Color Urine Yellow; Glucose Urine UA Negative (Negative); Leukocyte Esterase Urine Negative (Negative); Nitrite Urine Negative (Negative); PH 5.5 (5.0-9.0); Specific Gravity - Urine 1.025 (1.005-1.025); Urine Blood Negative (Negative); Urine Ketones Trace mg/dL (Negative); Urine Protein Negative (Neg-Trace)
[2024-08-19 14:25] LABS: MANUAL DIFF FLAG NO
[2024-08-19 14:30] LABS: Basophils Percent Auto 0.5 % (0-2); Eosinophils Absolute Auto 0.1 X10*3/uL (0.0-0.4); Eosinophils Percent Auto 2.7 % (0-4); Hematocrit 47.1 % (42.0-52.0); Imm Gran Abs Auto 0.01 X10*3/uL (0.00-0.03); Imm Gran Pct Auto 0.2 % (0.0-0.4); Lymphocytes Absolute Auto 0.9 X10*3/uL (1.2-4.9); Lymphocytes Percent Auto 21.9 % (20-40); Mean Corpuscular Hemoglobin 31.5 pg (27.0-33.0); Mean Corpuscular Volume 92.7 fL (80.0-98.0); Mean Platelet Volume 9.9 fL (9.4-12.4); Monocytes Absolute Auto 0.3 X10*3/uL (0.1-1.2); Monocytes Percent Auto 6.6 % (2-11); Neutrophils Absolute Auto 2.8 x10*3/uL (2.0-8.3); Neutrophils Percent Auto 68.1 % (45-73); Platelet Count 182 X10*3/uL (160-400); Red Blood Count 5.08 X10*6/uL (4.60-5.80); Red Cell Distribution Width 12.5 % (11.0-16.0); White Blood Count 4.1 X10*3/uL (4.8-10.8)
[2024-08-19 14:33] LABS: Bacteria Urine None Seen (None Seen); Calcium Oxalate Crystals Urine Present; Hyaline Casts Urine 0-2 /LPF (0-2); RBC Urine 0-2 /HPF (0-2); Squamous Epithelial Cell Urine 0-2 /HPF (0-2); WBC Urine 0-5 /HPF (0-5)
[2024-08-19 15:21] LABS: Alanine Aminotransferase 78 U/L (0-40); Albumin Level 4.1 g/dL (3.5-5.0); Alkaline Phosphatase 68 U/L (39-117); Anion Gap 11 (12-20); Aspartate Amino Transferase 40 U/L (5-37); Bilirubin Total 0.4 mg/dL (0.0-1.0); Blood Urea Nitrogen 17 mg/dL (9-16); Carbon Dioxide 27 mmol/L (22-29); Chloride 108 mmol/L (96-108); Cholesterol 146 mg/dL (<200); Estimated Glomerular Filt Rate > 60; Glucose Random 114 mg/dL (60-115); HDL Cholesterol 28 mg/dL (>40); LDL Cholesterol Calculated 80 mg/dL (<100); Potassium 3.9 mmol/L (3.3-5.1); Sodium 142 mmol/L (135-145); Triglycerides 191 mg/dL (<150)
[2024-08-19 15:31] LABS: Reflex LDLD? No
[2024-08-20 08:04] LABS: Syphilis Screen Nonreactive (Nonreactive)
[2024-08-20 21:19] LABS: HIV RNA PCR Qn Copies 41 copies/mL (NOT DETECTED); HIV RNA PCR Qn Log Copies 1.61 (NOT DETECTED)
[2024-08-27 14:02] LABS: Absolute CD3 Count 671 cells/uL (840-3060); Absolute CD4 Count 522 cells/uL (490-1740); Absolute CD8 Count 146 cells/uL (180-1170); Absolute Lymphocytes 837 cells/uL (850-3900); CD4 CD8 Ratio 3.57 (0.86-5.00); Percent CD3 Cells 80 % (57-85); Percent CD4 Cells 62 % (30-61); Percent CD8 Cells 17 % (12-42)
== END 2024-08-19 10:04 | disposition home or self-care (01) ==
LOC: HO.CHCLDS 10:03
PROVIDERS: Visit Provider Internal Medicine
DX: B20 Human immunodeficiency virus [HIV] disease (principal)
CPT/HCPCS: 36415; 80053; 80061; 81001; 85025; 86359; 86360; 86780; 87536

== ENCOUNTER 2025-02-10 10:53 | Outpatient (REF) | payer OTHER, SELFPAY ==
[2025-02-10 14:48] LABS: MANUAL DIFF FLAG NO
[2025-02-10 14:52] LABS: Hematocrit 46.8 % (42.0-52.0); Hemoglobin 15.6 g/dl (14.0-18.0); Imm Gran Abs Auto 0.01 X10*3/uL (0.00-0.03); Imm Gran Pct Auto 0.2 % (0.0-0.4); Lymphocytes Absolute Auto 0.9 X10*3/uL (1.2-4.9); Mean Corpuscular HGB Conc 33.3 g/dl (31.0-36.0); Mean Corpuscular Hemoglobin 30.5 pg (27.0-33.0); Mean Corpuscular Volume 91.6 fL (80.0-98.0); NRBC Abs Auto 0.000 X10*3/uL (0.0-0.012); NRBC Pct Auto 0.0 /100WBC (0.0-0.2); Platelet Count 172 X10*3/uL (160-400); Red Blood Count 5.11 X10*6/uL (4.60-5.80); White Blood Count 4.3 X10*3/uL (4.8-10.8)
[2025-02-10 18:13] LABS: Alanine Aminotransferase 49 U/L (0-40); Albumin Level 4.6 g/dL (3.5-5.0); Alkaline Phosphatase 76 U/L (39-117); Anion Gap 10 (12-20); Aspartate Amino Transferase 30 U/L (5-37); Blood Urea Nitrogen 17 mg/dL (9-16); Calcium 9.4 mg/dL (8.4-10.2); Carbon Dioxide 26 mmol/L (22-29); Chloride 111 mmol/L (96-108); Estimated Glomerular Filt Rate 59; Potassium 3.9 mmol/L (3.3-5.1); Sodium 143 mmol/L (135-145); Total Protein 7.2 g/dL (6.5-8.0)
[2025-02-12 00:12] LABS: HIV RNA PCR Qn Copies 128 copies/mL (NOT DETECTED); HIV RNA PCR Qn Log Copies 2.11 (NOT DETECTED)
[2025-02-15 12:12] LABS: Absolute CD3 Count 656 cells/uL (840-3060); Absolute CD8 Count 166 cells/uL (180-1170); Percent CD3 Cells 73 % (57-85); Percent CD8 Cells 19 % (12-42)
== END 2025-02-10 10:54 | disposition home or self-care (01) ==
LOC: HO.CHCLDS 10:53
PROVIDERS: Visit Provider Internal Medicine
DX: B20 Human immunodeficiency virus [HIV] disease (principal)
CPT/HCPCS: 36415; 80053; 85025; 86359; 86360; 87536

== ENCOUNTER 2025-02-19 09:28 | Emergency (ER) | payer OTHER, SELFPAY ==
--- NOTE | ~2025-02-19 | US_ITS ---
EXAMINATION: US ABDOMEN LIMITED HISTORY: RUQ elevated LFTs TECHNIQUE: Real-time grayscale ultrasound imaging of the gallbladder was performed and images were reviewed. COMPARISON: Correlation is made with a CT of the abdomen and pelvis with contrast performed immediately prior. FINDINGS: The gallbladder is unremarkable, without evidence of calculi, wall thickening, or pericholecystic fluid. There is no sonographic Mcdaniel sign. The common bile duct is mildly dilated, measuring 10 mm diameter. US/US abdomen limited IMPRESSION: No evidence of cholelithiasis. Mildly dilated common bile duct. If there is clinical concern for choledocholithiasis, MRCP could be performed. Electronically signed by: Richard Virk MD 02/19/2025 12:23 PM EDT
--- NOTE | ~2025-02-19 | CT_ITS ---
EXAMINATION: CT ABDOMEN PELVIS WITH IV CONTRAST HISTORY: abdominal pain/bloating COMPARISON: There are no prior studies for available comparison. TECHNIQUE: CT scan of the abdomen and pelvis was performed following administration of 85 mL Omnipaque 350 using standard departmental protocol. Coronal and sagittal reformatted images were generated and reviewed. This CT exam was performed with one or more of the following dose reduction techniques: automated exposure control, adjustment of the mA and/or kV according to patient size, use of iterative reconstruction technique. DLP: 518 mGy-cm FINDINGS: LOWER CHEST: Mild subsegmental atelectasis at the lung bases. CARDIOVASCULATURE: The heart is normal in size. There is no pericardial effusion. LIVER: Mild fatty infiltration. The liver is normal in size and contour. 2 low-attenuation liver lesions in the left lobe segment 2. The largest measures 1.3 cm axial image 10 series 3 and has low Hounsfield units suggestive of a cyst. Smaller 6.6 mm low-attenuation lesion axial image 12 series 3 difficult to accurately characterize due to small size but probably represents a small cyst as well. The hepatic and portal veins are patent. GALLBLADDER / BILE DUCTS: The gallbladder is upper normal in size. No gallstones or inflammatory changes seen. There is no intra biliary ductal dilatation. Slightly dilated common bile duct measuring 9 mm. SPLEEN: The spleen is normal in size. No focal splenic lesion is identified. PANCREAS: Mild dilatation of the pancreatic duct measuring up to 5.6 mm. Pancreas otherwise unremarkable. ADRENAL GLANDS: Within normal limits. KIDNEYS/RETROPERITONEUM: Ill-defined low-attenuation area in the lower pole of the right kidney measuring 1.5 cm axial image 43 series 3. This is not suggestive of a cyst. Area of infection. Differential would include renal mass and vascular changes/infarct. Second similar area of heterogeneous low-attenuation in the medial upper pole of the right kidney example axial image 32 series 3. There are several round low-attenuation left renal lesions. Largest measures 1.6 cm in the upper pole and is compatible with a cyst. Smaller lesions difficult to accurately characterize due to small size but probably represent small cysts as well. No renal calculi are identified. There is no hydronephrosis. LYMPH NODES: No abdominal or pelvic lymphadenopathy. VASCULATURE: Atherosclerotic disease. No aneurysm. Renal arteries and veins are patent. MESENTERY/PERITONEUM: No free fluid. No masses. There is no free intraperitoneal gas. STOMACH: Not optimally distended and not well evaluated. Difficult to exclude mild circumferential wall or fold thickening of the proximal stomach. SMALL BOWEL: Small bowel diverticulum. No evidence of small bowel diverticulitis. COLON: Diverticulosis of the colon. Mild wall thickening of the mid and distal left colon and fat stranding. There is also increased vascularity. Appearance questionable for mild diverticulitis or colitis. Large bowel are otherwise normal. APPENDIX: Normal. URINARY BLADDER/PELVIC ORGANS: The urinary bladder is unremarkable. Prostate gland appears a smaller than removed. No pelvic mass. BONES / SOFT TISSUES: Postsurgical changes in the left inguinal region. Diastases of the rectus muscles and paraumbilical hernia containing fat. Degenerative changes of the spine and hips. CT/CT abdomen pelvis w IV con IMPRESSION: Diverticulosis of the colon and question mild diverticulitis or colitis of the left colon. Mild dilatation of the common bile duct measuring 9 mm and main pancreatic duct measuring up to 5.6 mm. Recommend further evaluation with MRI of the abdomen with and without IV contrast and MRCP to exclude ampullary lesion. 1.5 cm low-attenuation area in the lower pole of the right kidney not compatible with a cyst. Differential would include infection/pyelonephritis, mass and infarct. This can be evaluated at time of abdominal MRI as well. Mild fatty infiltration of the liver. Probable liver and left renal cysts. Electronically signed by: Britney Vázquez MD 02/19/2025 12:40 PM EDT
[2025-02-19 09:34] VITALS: BP 210/110; PULSE 97; O2SAT 97
[2025-02-19 09:35] VITALS: BP 186/85; PULSE 79; RESP 20; TEMP 36.8; O2SAT 97; BMI 27.9
--- NOTE | 2025-02-19 09:38 | ED_ITS ---
HPI - General Adult General Chief complaint: Abdominal Pain Stated complaint: abd pain, distended Time Seen by Provider: 02/19/25 09:35 Source: patient and EMS Mode of arrival: EMS Limitations: no limitations History of Present Illness ED Provider: JOSEY LYMAN PA-C HPI narrative: 69 year old male with pmhx significant for HTN, HIV, HLD, GERD, gout, depression, anxiety, BPH and prostate cancer s/p prostatectomy a few months ago at [facility] presents to the ED via EMS today for evaluation of abdominal pain since last night. Patient reports cooking/eating a boiled dinner consisting of ham, cabbage, potatoes and carrots. He then took a nap and awoke with acute onset of diffuse abdominal pain/bloating. Associated nausea, no vomiting. Last BM yesterday. Denies recent constipation/diarrhea. No known history of diverticulitis. Denies etoh consumption or tobacco use. Patient expresses frustration regarding recent prostatectomy - reports complication of abdominal wall hernia post surgery. He has followed up with multiple doctors following his surgery and feels he is being bounced around. Further surgical history includes right and left inguinal hernia repair. Denies any other abdominal surgeries. Reports history of colonoscopy few years ago. Related Data Home Medications ?Medication ?Instructions ?Recorded ?Confirmed bictegravir 50 mg-emtricitabine 1 tab PO QAM 10/09/23 03/04/24 200 mg-tenofovir alafenam 25 mg tablet (Biktarvy) cholecalciferol (vitamin D3) 50 50 mcg PO DAILY 03/04/24 mcg (2,000 unit) capsule clonazepam 0.5 mg tablet 0.5 mg PO DAILY 10/09/2304/15 cyclobenzaprine 10 mg tablet 10 mg PO TID 10/09/2304/15 hydrochlorothiazide 12.5 mg tablet 12.5 mg PO DAILY 03/04/24 losartan 100 mg tablet 100 mg PO DAILY 10/09/2304/15 omeprazole 20 mg capsule,delayed 20 mg PO DAILY 03/04/24 release sildenafil 100 mg tablet (Viagra) 100 mg PO DAILY PRN Erectile 10/09/23 03/04/24 Dysfunction rosuvastatin 5 mg tablet 5 mg PO DAILY 11/08/24 11/12 /24 clonazepam 1 mg tablet 1 mg PO BEDTIME PRN Anxiety 03/04/24 03/04/24 Previous Rx's ?Medication ?Instructions ?Recorded amoxicillin 875 mg-potassium 1 tab PO BID 7 days #14 t abs 02/19/25 clavulanate 125 mg tablet Allergies Allergy/AdvReac Type Severity Reaction Status Date / Time No Known Drug Allergies Allergy Unknown none Verified 02/19/25 09:41 Review of Systems 2 Review of Systems: Yes all other systems are reviewed and are negative [facility] Past Medical History Attestation statement: The following information was validated with the patient. Source: old records reviewed and nursing notes reviewed Medical History History of lumbar puncture Depression with anxiety Elevated cholesterol HTN (hypertension) HIV (human immunodeficiency virus infection) Osteoporosis GERD (gastroesophageal reflux disease) Erectile dysfunction BPH (benign prostatic hyperplasia) Surgical History Hx of right inguinal hernia repair Hx of left inguinal hernia repair Hx of arthroscopy of left knee Hx of excision of mass Hx of prostate biopsy H/O colonoscopy S/P TURP Social History Social History Alcohol intake: current Alcohol intake frequency: holidays/special occasions only Alcohol type: beer Patient Tobacco Use Status: Never used Tobacco Advance Directives: No Advance Directives Information Provided: No Physical Exam ED Vital Signs: Vital Signs - 24 hr 02/19/25 09:35 02/19/25 10:30 02/19/25 11:43 Temperature 98.3 F 98.2 F Pulse Rate 79 84 Respiratory Rate 20 16 18 Blood Pressure 186/85 H 160/77 H Pulse Oximetry 97 98 Oxygen Delivery Method Room Air Aerosol Mask Oxygen Flow Rate 2 02/19/25 13:41 02/19/25 14:14 Temperature 97.6 F 97.6 F Pulse Rate 92 92 Respiratory Rate 18 18 Blood Pressure 177/95 H 177/95 H Pulse Oximetry 96 96 Oxygen Delivery Method Room Air Room Air Oxygen Flow Rate BMI result Body Mass Index 27.9 hypertensive, vitals are otherwise wnl General: Uncomfortable appearing, holding abdomen Skin: Warm, dry, intact. No rashes or lesions. Head: Normocephalic, atraumatic. EENT: Hearing is intact b/l. Conjunctiva clear. PERRLA. EOM intact. Moist mucous membranes.? Cardiac: Chest wall symmetric. RRR Lungs: Normal respiratory effort without accessory muscle use. CTA bilaterally Abdomen: Distended, soft, diffusely tender to palpation without rebound or guarding, there is a reducible incisional hernia, no other palpable abdominal masses, active bowel sounds x4 Ext: Upper and lower extremities atraumatic, without tenderness, deformity, swelling or erythema Neuro: AOx3. Normal speech Course Course Course Narrative: 1008 - [facility] records requested 1142 --CBC without leukocytosis however there is neutrophil predominance. No anemia, H and H stable. Chemistry without acute electrolyte abnormality requiring intervention. Renal function appears to be around baseline, may be a bit dehydrated. IV fluids ordered. Random glucose 138, no anion gap. Transaminitis with elevated T and direct bili ? Biliary obstruction. Lipase WNL > abdominal ultrasound and CT pending. ua pending. > medicated with morphine, Zofran 1400 -- Right upper quadrant ultrasound without evidence of cholelithiasis. No evidence of acute cholecystitis. There is mild dilation of the common bile duct, recommending MRCP. CT abdomen showing diverticulosis with question mild diverticulitis/colitis of the left colon. There is also mild dilation of the CBD measuring 9 mm and main pancreatic duct measuring 5.6 mm, recommending further eval with abdominal MRI/MRCP to exclude ampullary lesion. There is also a 1.5 cm low-attenuation area in the lower pole of the right kidney not compatible with a cyst, mass can not be ruled out. I discussed all workup results with patient. I have even provided him a printout of his imaging results. I discussed the need to stay for admission to the hospital for MRCP/further evaluation, given his concerning history of cancer with recent prostatectomy. He verbalizes understanding however is declining admission at this time and would like to leave AMA as he has a food order waiting for him at home. I stressed the importance of staying for this testing. Patient is choosing to leave AMA and with informed refusal. Patient was advised reasoning for hospital admission and provided with a full explanation of the rationale. The risks of leaving were explained to the patient and include, but not are not limited to, worsening of known or currently on known conditions, permanent disability, and from undiagnosed or untreated conditions. The patient has the capacity to make this decision and has the capacity to understand the clinical situation and my explanation of the risks of refusing. The patient voluntarily accepts these risks. Patient was given the opportunity to ask questions and reconsider. Given his symptoms/ diverticulitis on scan, I will start him on Augmentin - this has been sent to the pharmacy. I have also provided him with a GI referral and stressed that he can return to the ED for workup/treatment at any point. Medications Administered Discontinued Medications Generic Name Dose Route Start Last Admin Trade Name Sarah Beth PRN Reason Stop Dose Admin Sodium Chloride 1,000 mls @ 999 mls/hr 02/19/25 10:00 02/19/25 10:31 Ns IV 02/19/25 11:00 999 mls/hr .Q1H1M MAYANK Administration Iohexol 100 ml 02/19/25 11:58 02/19/25 11:58 Iohexol 350 Mg/Ml 100 Ml Infus..Btl IV 02/19/25 11:59 85 ml ONCE ONE Administration Morphine Sulfate 5 mg 02/19/25 09:54 02/19/25 10:30 Morphine Sulfate 10 Mg/Ml Cartridge IVPUSH 02/19/25 09:55 5 mg ONCE ONE Administration Protocol Ondansetron HCl 4 mg 02/19/25 09:54 02/19/25 10:30 Ondansetron Hcl 4 Mg/2 Ml Vial IVPUSH 02/19/25 09:55 4 mg ONCE ONE Administration Medical Decision Making Medical Decision Making [facility] Narrative: 69 year old male with pmhx significant for HTN, HIV, HLD, GERD, gout, depression, anxiety, BPH and prostate cancer s/p prostatectomy a few months ago at [facility] presents to the ED via EMS today for evaluation of abdominal pain since last night. hypertensive, vitals are otherwise wnl. Differential diagnosis includes diverticulitis, diverticulosis, abdominal adhesions, constipation, bowel obstruction, abdominal wall hernia, hepatitis, gastroenteritis, colitis, metastatic disease Less likely acute abdomen, bowel perforation, appendicitis Plan for labs, UA, imaging, pain control/IVF, re-evaluation. Differential Diagnosis Differential Diagnoses: The differential diagnosis associated with the presentation includes as above. Admission/Observation Consideration of admission/observation: Escalation of care including admission/observation considered patient declining admission Lab Data [facility] Lab Attestation statement: I reviewed the patient's lab results. as above. 10/30/25 10:26 02/19/25 10:26 Labs: Lab Results 02/19/25 Range/Units 10:26 WBC 7.7 (4.8-10.8) X10*3/uL RBC 5.04 (4.60-5.80) X10*6/uL Hgb 15.8 (14.0-18.0) g/dl Hct 46.8 (42.0-52.0) % MCV 92.9 (80.0-98.0) fL MCH 31.3 (27.0-33.0) pg MCHC 33.8 (31.0-36.0) g/dl RDW 12.5 (11.0-16.0) % Plt Count 142 L (160-400) X10*3/uL MPV 9.4 (9.4-12.4) fL Immature Gran % (Auto) 0.4 (0.0-0.4) % Neut % (Auto) 87.1 H (45-73) % Lymph % (Auto) 6.9 L (20-40) % [place] % (Auto) 4.8 (2-11) % Eos % (Auto) 0.4 (0-4) % Baso % (Auto) 0.4 (0-2) % Lymph # (Auto) 0.5 L (1.2-4.9) X10*3/uL [place] # (Auto) 0.4 (0.1-1.2) X10*3/uL Eos # (Auto) 0.0 (0.0-0.4) X10*3/uL Baso # (Auto) 0.0 (0.0-0.2) X10*3/uL Abs Immat Gran (auto) 0.03 (0.00-0.03) X10*3/uL Absolute Neuts (auto) 6.7 (2.0-8.3) x10*3/uL Absolute Nucleated RBC 0.000 (0.0-0.012) X10*3/uL Nucleated RBC % (auto) 0.0 (0.0-0.2) /100WBC Sodium 142 (135-145) mmol/L Potassium 3.7 (3.3-5.1) mmol/L Chloride 106 (96-108) mmol/L Carbon Dioxide 29 (22-29) mmol/L Anion Gap 11 L (12-20) BUN 24 H (9-16) mg/dL Creatinine 1.33 (0.5-1.4) mg/dL Estim Creat Clear Calc 53.5 Estimated GFR 53 Random Glucose 138 H (60-115) mg/dL Calcium 10.0 D (8.4-10.2) mg/dL Magnesium 2.0 (1.6-2.6) mg/dL Total Bilirubin 1.3 H (0.0-1.0) mg/dL Direct Bilirubin 0.7 H (0.0-0.5) mg/dL AST 260 H (5-37) U/L ALT 186 H (0-40) U/L Alkaline Phosphatase 89 (39-117) U/L Total Protein 7.3 (6.5-8.0) g/dL Albumin 4.6 (3.5-5.0) g/dL Lipase 20 (8-78) U/L Independent Interpretation I performed an independent interpretation of an: Ultrasound and CT Scan Radiology Impression Discussion of test interpretation with radiology: I have reviewed the radiologist's reading. Radiologist Impression: Procedure(s): CT abdomen pelvis w IV con Accession Number(s): [id number] cc: Federico Nathan MD; Josey Lyman~ Report Number: [id number]: Total DLP = 518.00 mGy-cm Reason for Exam: abdominal pain/bloating EXAMINATION: CT ABDOMEN PELVIS WITH IV CONTRAST HISTORY: abdominal pain/bloating COMPARISON: There are no prior studies for available comparison. TECHNIQUE: CT scan of the abdomen and pelvis was performed following administration of 85 mL Omnipaque 350 using standard departmental protocol. Coronal and sagittal reformatted images were generated and reviewed. This CT exam was performed with one or more of the following dose reduction techniques: automated exposure control, adjustment of the mA and/or kV according to patient size, use of iterative reconstruction technique. DLP: 518 mGy-cm FINDINGS: LOWER CHEST: Mild subsegmental atelectasis at the lung bases. CARDIOVASCULATURE: The heart is normal in size. There is no pericardial effusion. LIVER: Mild fatty infiltration. The liver is normal in size and contour. 2 low-attenuation liver lesions in the left lobe segment 2. The largest measures 1.3 cm axial image 10 series 3 and has low Hounsfield units suggestive of a cyst. Smaller 6.6 mm low-attenuation lesion axial image 12 series 3 difficult to accurately characterize due to small size but probably represents a small cyst as well. The hepatic and portal veins are patent. GALLBLADDER / BILE DUCTS: The gallbladder is upper normal in size. No gallstones or inflammatory changes seen. There is no intra biliary ductal dilatation. Slightly dilated common bile duct measuring 9 mm. SPLEEN: The spleen is normal in size. No focal splenic lesion is identified. PANCREAS: Mild dilatation of the pancreatic duct measuring up to 5.6 mm. Pancreas otherwise unremarkable. ADRENAL GLANDS: Within normal limits. KIDNEYS/RETROPERITONEUM: Ill-defined low-attenuation area in the lower pole of the right kidney measuring 1.5 cm axial image 43 series 3. This is not suggestive of a cyst. Area of infection. Differential would include renal mass and vascular changes/infarct. Second similar area of heterogeneous low-attenuation in the medial upper pole of the right kidney example axial image 32 series 3. There are several round low-attenuation left renal lesions. Largest measures 1.6 cm in the upper pole and is compatible with a cyst. Smaller lesions difficult to accurately characterize due to small size but probably represent small cysts as well. No renal calculi are identified. There is no hydronephrosis. LYMPH NODES: No abdominal or pelvic lymphadenopathy. VASCULATURE: Atherosclerotic disease. No aneurysm. Renal arteries and veins are patent. MESENTERY/PERITONEUM: No free fluid. No masses. There is no free intraperitoneal gas. STOMACH: Not optimally distended and not well evaluated. Difficult to exclude mild circumferential wall or fold thickening of the proximal stomach. SMALL BOWEL: Small bowel diverticulum. No evidence of small bowel diverticulitis. COLON: Diverticulosis of the colon. Mild wall thickening of the mid and distal left colon and fat stranding. There is also increased vascularity. Appearance questionable for mild diverticulitis or colitis. Large bowel are otherwise normal. APPENDIX: Normal. URINARY BLADDER/PELVIC ORGANS: The urinary bladder is unremarkable. Prostate gland appears a smaller than removed. No pelvic mass. BONES / SOFT TISSUES: Postsurgical changes in the left inguinal region. Diastases of the rectus muscles and paraumbilical hernia containing fat. Degenerative changes of the spine and hips. CT/CT abdomen pelvis w IV con IMPRESSION: Diverticulosis of the colon and question mild diverticulitis or colitis of the left colon. Mild dilatation of the common bile duct measuring 9 mm and main pancreatic duct measuring up to 5.6 mm. Recommend further evaluation with MRI of the abdomen with and without IV contrast and MRCP to exclude ampullary lesion. 1.5 cm low-attenuation area in the lower pole of the right kidney not compatible with a cyst. Differential would include infection/pyelonephritis, mass and infarct. This can be evaluated at time of abdominal MRI as well. Mild fatty infiltration of the liver. Probable liver and left renal cysts. Electronically signed by: Britney Vázquez MD 02/19/2025 12:40 PM EDT RP Procedure(s): US abdomen limited Accession Number(s): [id number] cc: Name,Federico HERRERA; Josey Lyman~ Reason for Exam: RUQ elevated LFTs EXAMINATION: US ABDOMEN LIMITED HISTORY: RUQ elevated LFTs TECHNIQUE: Real-time grayscale ultrasound imaging of the gallbladder was performed and images were reviewed. COMPARISON: Correlation is made with a CT of the abdomen and pelvis with contrast performed immediately prior. FINDINGS: The gallbladder is unremarkable, without evidence of calculi, wall thickening, or pericholecystic fluid. There is no sonographic Mcdaniel sign. The common bile duct is mildly dilated, measuring 10 mm diameter. US/US abdomen limited IMPRESSION: No evidence of cholelithiasis. Mildly dilated common bile duct. If there is clinical concern for choledocholithiasis, MRCP could be performed. Electronically signed by: Richard Virk MD 02/19/2025 12:23 PM [employer] Independent Historian Clinical information obtained from an independent historian. History obtained from or confirmed by: EMS External Record Review External record reviewed: Inpatient record, Office record, Outpatient record and Prior outpatient labs Prescription Management I considered prescription management with: Pain Medication and Antibiotic Chronic Conditions Patient?s care impacted by: Cancer Social Determinants Patient?s care significantly limited by Social Determinants of Health including: Other Social Determinant of Health Critical Care Time Critical Care Time Critical Care Time: Yes Total Critical Care Time: 31 Attestation: Critical care time in the amount of 31 minutes has been provided to the patient in terms of direct patient care, frequent reevaluation, review and interpretation of medical data and results, and management of potentially life- threatening conditions. This is all outside of any medical procedures. Discharge Plan Discharge Clinical Impression: Diverticulitis Patient Disposition: Left Against Medical Advice Instructions: MRCP (Magnetic Resonance Cholangiopancreatography) (DC) Additional Instructions: You were evaluated in the ED today for abdominal pain. Your blood work shows elevated liver enzymes. As discussed, the CT scan of your abdomen shows dilation of your common bile duct and pancreatic duct. The recommendation for further evaluation is MRI of the abdomen/MRCP to exclude lesion. There is also a lesion to your right kidney that needs to be further evaluated with MRI. Given your history of cancer, these findings are concerning. All findings were clearly discussed with you and the recommendation is to admit you to our medical floor for these tests as cancer cannot be completely ruled out. You are declining at this time and would like to be discharged home. Risks of you leaving the emergency department against medical advice were discussed. You are choosing to leave anyway. You have been provided with the complete radiology read. You may return to the emergency department at any point. I have also provided you with a referral to our GI specialist. Please call them to establish care In the meantime, I am starting you on antibiotic (Augmentin) to treat your diverticulitis. Take this as prescribed do not miss any doses. Return with any new or worsening symptoms. In the case of an emergency call 911. CT abdomen pelvis w IV con IMPRESSION: Diverticulosis of the colon and question mild diverticulitis or colitis of the left colon. Mild dilatation of the common bile duct measuring 9 mm and main pancreatic duct measuring up to 5.6 mm. Recommend further evaluation with MRI of the abdomen with and without IV contrast and MRCP to exclude ampullary lesion. 1.5 cm low-attenuation area in the lower pole of the right kidney not compatible with a cyst. Differential would include infection/pyelonephritis, mass and infarct. This can be evaluated at time of abdominal MRI as well. Mild fatty infiltration of the liver. Probable liver and left renal cysts. Prescriptions: New amoxicillin-pot clavulanate 875-125 mg tablet 1 tab PO BID 7 Days Qty: 14 0RF No Action rosuvastatin 5 mg tablet 5 mg PO DAILY clonazepam 1 mg tablet 1 mg PO BEDTIME PRN (Reason: Anxiety) Biktarvy 50-200-25 mg tablet 1 tab PO QAM omeprazole 20 mg capsule,delayed release(DR/EC) 20 mg PO DAILY hydrochlorothiazide 12.5 mg tablet 12.5 mg PO DAILY losartan 100 mg tablet 100 mg PO DAILY clonazepam 0.5 mg tablet 0.5 mg PO DAILY cholecalciferol (vitamin D3) 50 mcg (2,000 unit) capsule 50 mcg PO DAILY sildenafil [Viagra] 100 mg tablet 100 mg PO DAILY PRN (Reason: Erectile Dysfunction) cyclobenzaprine 10 mg tablet 10 mg PO TID Referrals: [facility] [Provider Group, Gastroenterology] Name,MD Federico [Primary Care Provider, Internal Medicine] Stand Alone Forms: Against Medical Advice Interventions: ED Discharge Assessment Last Done: 02/19/25 14:14 Discharge Date/Time: 02/19/25 14:16 Print Language: Malay
[2025-02-19 10:30] VITALS: RESP 16
[2025-02-19 10:31] LABS: MANUAL DIFF FLAG NO
[2025-02-19 10:35] LABS: Hematocrit 46.8 % (42.0-52.0); Hemoglobin 15.8 g/dl (14.0-18.0); Imm Gran Abs Auto 0.03 X10*3/uL (0.00-0.03); Imm Gran Pct Auto 0.4 % (0.0-0.4); Lymphocytes Absolute Auto 0.5 X10*3/uL (1.2-4.9); Mean Corpuscular HGB Conc 33.8 g/dl (31.0-36.0); Mean Corpuscular Hemoglobin 31.3 pg (27.0-33.0); Mean Corpuscular Volume 92.9 fL (80.0-98.0); NRBC Abs Auto 0.000 X10*3/uL (0.0-0.012); NRBC Pct Auto 0.0 /100WBC (0.0-0.2); Platelet Count 142 X10*3/uL (160-400); Red Blood Count 5.04 X10*6/uL (4.60-5.80); White Blood Count 7.7 X10*3/uL (4.8-10.8)
[2025-02-19 10:52] LABS: Alanine Aminotransferase 186 U/L (0-40); Albumin Level 4.6 g/dL (3.5-5.0); Alkaline Phosphatase 89 U/L (39-117); Anion Gap 11 (12-20); Aspartate Amino Transferase 260 U/L (5-37); Blood Urea Nitrogen 24 mg/dL (9-16); Calcium 10.0 mg/dL (8.4-10.2); Carbon Dioxide 29 mmol/L (22-29); Chloride 106 mmol/L (96-108); Creatinine Clr Calc Pharmacy 53.5; Estimated Glomerular Filt Rate 53; Lipase 20 U/L (8-78); Magnesium 2.0 mg/dL (1.6-2.6); Potassium 3.7 mmol/L (3.3-5.1); Sodium 142 mmol/L (135-145); Total Protein 7.3 g/dL (6.5-8.0)
[2025-02-19 11:43] VITALS: BP 160/77; PULSE 84; RESP 18; TEMP 36.8; O2SAT 98
--- OUTSIDE RECORDS SUMMARY | 2025-02-19 11:47 | XMS_ITS | Encounter Summary ---
Author Organization [facility] Address [address] [place] [address] Care Team Providers Care Security Systems Manager Name Role Phone Unavailable Primary Care Provider Unavailabl e Encounter Details Date Type Department Care Team (Late st Contact Info) Description 04/02/2024 Lab Requisition [facility] - Main Lab [address] [place] [address] Akbar Gonzalez MD [address] [place] [address] Elevated prostate specific antigen (PSA) [...] (04/01/2024) Final Diagnosis A. Prostate, Left [place] (Core Biospy): - Benign prostate tissue. B. Prostate, Left Lateral [place] (Core Biospy): - Benign Prostate tissue. C. Prostate, Left [place] (Core Biospy): - Prostatic acinar adenocarcinoma, grade group 1, Gudaalupe score (3+3=6). - Tumor continuously involves 20% [...] Benign prostate tissue. I. Prostate, Right [place] (Core Biospy): - Benign stroma only. J. Prostate, Right Lateral [place] (Core Biospy): - Benign prostate tissue. K. Prostate, Right [place] (Core Biospy): - Benign prostate tissue. L. Prostate, Right Lateral Middle (Core Biospy): - Benign prostate tissue. M. Prostate, Right [place] (Core Biospy): - Prostatic acinar adenocarcinoma, grade group 3, Sunfield score (4+3=7). - Percentage pattern 4: 70%. - Tumor continuously involves 60% of 1 of 1 tissue core. - PIN4 supports diagnosis. N. Prostate, Right Lateral Base (Core Biospy): - Prostatic acinar adenocarcinoma, grade group 3, Sunfield score (4+3=7). - Percentage pattern 4: 30%. - Tumor continuously involves 30% of 1 of 1 tissue core. O. Prostate, Right Peripheral Zone Lesion (Core Biopsy): - Prostatic acinar adenocarcinoma, grade group 3, Sunfield score (4+3=7). - Percentage pattern 4: 90%. - Tumor continuously involves 0,0,30% of 1 of 3 tissue cores. - High grade prostatic intraepithelial neoplasia (HGPIN). 04/09/2024 9:26 AM [facility] Comment PIN4 performed at [facility], [address], [place] [address], CLIA # [id number] 04/09/2024 9:26 AM [facility] Clinical Information Elevated PSA R97.20 PSA: 7.5 (02/11/24) [id number] 04/09/2024 9:26 AM [facility] Gross Description A. Prostate, Left [place] Biopsy: Received, properly labeled, are two H and E stained slides and two unstained slides. B. Prostate, Left Lateral [place] Biopsy: Received, properly labeled, are two H [...] two unstained slides. I. Prostate, Right [place] Biopsy: Received, properly labeled, are two H and E stained slides and two unstained slides. J. Prostate, Right Lateral [place] Biopsy: Received, properly labeled, are two H [...] two unstained slides. /al 04/09/2024 9:26 AM [facility] Disclaimer Unless otherwise specified, all tissue is 10% NB formalin fixed and paraffin embedded. Technical pathology services provided by [facility] at [address] [place] [address] [address], [place] [address] (CLIA #[id number]/Karen Cantrell MD, Rat Trapper) 04/09/2024 9:26 AM [facility] Tissue Prostate / Unknown 04/01/20242023 3:45 [...] Gonzalez MD LAB PATHOLOGY ORDERABLES Final Result [facility] [address] [place] [address], documented in this encounter Visit Diagnoses Diagnosis Elevated prostate specific antigen (PSA) documented in this encounter
--- OUTSIDE RECORDS SUMMARY | 2025-02-19 11:47 | XMS_ITS | Clinical Summary ---
Author Organization [address] [facility] Address [address] [place] [address] Phone Care Team Providers Care Swimmer Name Role Phone Unavailable Primary Care Provider Unavailabl e Social History Tobacco Use Types Packs/Day Years Used Date Smoking Tobacco: Never Assessed Sex and Gender Information Value Date Recorded Sex Assigned at Not on file Legal Sex Male 10:25 AM EST Gender Identity Not on file Sexual Orientation Not on file Plan of Treatment Health Maintenance Due Date Last Done Comments Colorectal Cancer Screening: Colonoscopy 1955 Meningococcal ACWY Vaccine (1 - Risk 2-dose series) 1955 COVID-19 Vaccine (#1) 1958 MMR Vaccines (1 of 2 - Risk 2-dose series) 1971 Hepatitis A Vaccines (1 of 2 - Risk 2-dose series) 1972 Zoster Vaccines (1 of 2) 1972 RSV Immunization Adult Patients (1 - Risk 50-74 years 1-dose series) 2003 Pneumococcal Vaccine: 50+ Years (2 of 2 - PCV) 02/01/2007 02/01/2006 DTaP,Tdap,and Td Vaccines (2 - Td or Tdap) 09/16/2018 09/16/2008 Abdominal Aortic Aneurysm (AAA) Screen 04/06/2022 Cholesterol Screening (Lipid Panel) 04/06/2022 Falls Risk Assessment 04/06/2022 Hepatitis C Screening 04/06/2022 Social Influencers of Health Screening 04/06/2022 Hypertension/CHF/CAD Annual BMP Blood Test 04/08/2022 Depression Screening 04/23/2024 Influenza Vaccine (#1) 2024 5, 02/02/2014, 01/07/2013, Additional history exists Hepatitis B [...]
[2025-02-19] MEDS: iohexoL 350 MG/ML 100 ML INFUS..BTL IV (11:58)
[2025-02-19 13:41] VITALS: BP 177/95; PULSE 92; RESP 18; TEMP 36.4; O2SAT 96
--- NOTE | 2025-02-19 14:12 | PC.NURSE ---
Wants to leave against medical advice, worried about home food delivery. Provider (HOMERO Lyman) at bedside explained risks associated with leaving AMA. Pt declines admission at this time. Discharging home AMA.
[2025-02-19 14:14] VITALS: BP 177/95; PULSE 92; RESP 18; TEMP 36.4; O2SAT 96
[2025-02-20 15:39] LABS: HIV RNA PCR Qn Copies NOT DETECTED copies/mL (NOT DETECTED); HIV RNA PCR Qn Log Copies NOT DETECTED (NOT DETECTED)
[2025-02-25 17:44] LABS: Absolute CD3 Count 396 cells/uL (840-3060); Absolute CD8 Count 84 cells/uL (180-1170); Percent CD3 Cells 70 % (57-85); Percent CD8 Cells 15 % (12-42)
== END 2025-02-19 14:16 | disposition left against medical advice (07) ==
PROVIDERS: Physician Assistant Medical; Emergency Provider Emergency Medicine; PCP Internal Medicine Geriatric Medicine
DX: K57.92 Diverticulitis of intestine, part unspecified, without perforation or abscess without bleeding (principal); R10.9 Unspecified abdominal pain; I10 Essential (primary) hypertension; B20 Human immunodeficiency virus [HIV] disease; K21.9 Gastro-esophageal reflux disease without esophagitis
CPT/HCPCS: 36415; 74177; 76705; 80053; 82248; 83690; 83735; 85025; 86359; 86360; 87536; 96361; 96374; 96375; 99283; 99285; J2270; J2405; Q9967

== ENCOUNTER → 2025-02-19 09:54 | Outpatient (BNV) | payer OTHER, SELFPAY | PROVIDERS: Emergency Provider Emergency Medicine; PCP Internal Medicine Geriatric Medicine; Visit Provider Radiology Diagnostic Radiology | DX: R10.84 Generalized abdominal pain (principal); R14.0 Abdominal distension (gaseous); R74.01 Elevation of levels of liver transaminase levels | CPT/HCPCS: 74177; 76705 ==

== ENCOUNTER 2025-02-21 09:51 | Emergency (ER) | payer OTHER, SELFPAY ==
[2025-02-21 09:54] VITALS: BP 174/81; PULSE 82; RESP 18; TEMP 36.6; O2SAT 95; BMI 26.9
--- NOTE | 2025-02-21 10:15 | ED_ITS ---
HPI - General Adult General Chief complaint: General Medical Stated complaint: lesions in pancreas Time Seen by Provider: 02/21/25 10:09 Source: patient Mode of arrival: ambulatory Limitations: no limitations History of Present Illness ED Provider: Faith Gallego APRN HPI narrative: This is a 69-year-old male who has a past medical history of HIV, hypertension, GERD, prostate cancer with radical prostatectomy by [facility] in December 2024 who presents to the emergency room with abdominal pain. Patient reports that he was seen here on . He was found to have diverticulitis and a CT scan that was concerning for common bile duct dilation, pancreatic duct dilation in addition to a lesion in the right kidney. Radiology had recommendations for the patient to have an MRI of the abdomen with and without IV contrast and an MRCP. Patient reports that he left against medical advice as he needed to go home to get his groceries. He was discharged home with Augmentin 875 b.i.d.. He reports his abdominal pain is improving. He has no reports of nausea, vomiting, diarrhea, fevers or chills. Does have complaints of total body itching with taking the Augmentin but no body rash. Related Data Home Medications ?Medication ?Instructions ?Recorded ?Confirmed bictegravir 50 mg-emtricitabine 1 tab PO QAM 10/09/23 03/04/24 200 mg-tenofovir alafenam 25 mg tablet (Biktarvy) cholecalciferol (vitamin D3) 50 50 mcg PO DAILY 03/04/24 mcg (2,000 unit) capsule clonazepam 0.5 mg tablet 0.5 mg PO DAILY 10/09/2304/15 cyclobenzaprine 10 mg tablet 10 mg PO TID 10/09/2304/15 hydrochlorothiazide 12.5 mg tablet 12.5 mg PO DAILY 03/04/24 losartan 100 mg tablet 100 mg PO DAILY 10/09/2304/15 omeprazole 20 mg capsule,delayed 20 mg PO DAILY 03/04/24 release sildenafil 100 mg tablet (Viagra) 100 mg PO DAILY PRN Erectile 10/09/23 03/04/24 Dysfunction rosuvastatin 5 mg tablet 5 mg PO DAILY 02/29/2403/04 clonazepam 1 mg tablet 1 mg PO BEDTIME PRN Anxiety 03/04/24 03/04/24 Previous Rx's ?Medication ?Instructions ?Recorded amoxicillin 875 mg-potassium 1 tab PO BID 7 days #14 t abs 02/19/25 clavulanate 125 mg tablet Allergies Allergy/AdvReac Type Severity Reaction Status Date / Time No Known Drug Allergies Allergy Unknown none Verified 02/21/25 10:01 Review of Systems 2 Review of Systems: Yes all other systems are reviewed and are negative Constitutional: Constitutional: Reports no additional constitutional complaints, Denies body ache(s), Denies chills, Denies fever(s), Denies headache(s) and Denies weakness Eyes: Eyes: Reports no additional eye complaints and Denies change in vision ENT: Reports system reviewed and no additional complaints, except as documented, Denies dizziness, Denies headache(s), Denies nasal congestion, Denies nasal discharge and Denies neck pain Cardiovascular: Cardiovascular: Reports no additional cardiovascular complaints, Denies chest pain, Denies leg edema and Denies dyspnea Respiratory: Respiratory: Reports no additional respiratory complaints, Denies cough and Denies dyspnea Gastrointestinal: Gastrointestinal: Reports no additional gastrointestinal complaints, Reports abdominal pain, Denies diarrhea, Denies nausea and Denies vomiting Genitourinary: Genitourinary: Denies urinary incontinence Musculoskeletal: Musculoskeletal: Reports no additional musculoskeletal complaints, Denies back pain, Denies arthralgias, Denies joint swelling, Denies neck pain, Denies numbness and Denies tingling Integumentary/Breasts: Skin/Breast: Reports system reviewed and no additional complaints, except as docu and Denies rash Neurologic: Reports system reviewed and no additional complaints, except as documented, Denies Abnormal speech present, Denies dizziness, Denies headache(s), Denies numbness, Denies tingling and Denies weakness PMFSH Past Medical History Attestation statement: The following information was validated with the patient. Source: old records reviewed and nursing notes reviewed Medical History History of lumbar puncture Depression with anxiety Elevated cholesterol HTN (hypertension) HIV (human immunodeficiency virus infection) Osteoporosis GERD (gastroesophageal reflux disease) Erectile dysfunction BPH (benign prostatic hyperplasia) Surgical History Hx of right inguinal hernia repair Hx of left inguinal hernia repair Hx of arthroscopy of left knee Hx of excision of mass Hx of prostate biopsy H/O colonoscopy S/P TURP Social History Social History Alcohol intake: current Alcohol intake frequency: holidays/special occasions only Alcohol type: beer Patient Tobacco Use Status: Never used Tobacco Advance Directives: No Advance Directives Information Provided: Yes Do you have a plan to hurt others: No Plan Physical Exam ED Vital Signs: Vital Signs - 24 hr 02/21/25 09:54 02/21/25 12:53 Temperature 97.8 F 0 F L Pulse Rate 82 0 L Respiratory Rate 18 0 L Blood Pressure 174/81 H 00/00 L Pulse Oximetry 95 Oxygen Delivery Method Room Air BMI result Body Mass Index 26.9 Const General: cooperative, healthy appearing, comfortable and no acute distress Orientation/consciousness: patient oriented x3 Limitations: no limitations HENMT Head: Yes normal to inspection Ears: hearing grossly normal bilaterally General nose exam: Normal external nose present Face and sinus: Yes normal facial exam Mouth: Normal oral and palatal mucosa present Throat: Yes posterior oropharynx normal Eyes General: appearance normal, both eyes and all related structures Pupils: Equal, round and reactive pupils present Neck Neck: Yes normal visual inspection Chest Chest palpation & inspection: normal inspection of the chest Resp Effort & Inspection: normal respiratory effort Auscultation: clear to auscultation bilaterally Cardio Rate: regular rate Rhythm: regular rhythm Peripheral pulses: Peripheral pulses 2+ throughout GI Inspection: Yes normal to inspection Palpation (GI): Soft to palpation and nontender Auscultation: normal bowel sounds Back/Spine/Pelvis Thoracic/Lumbar Spine: thoracic and lumbar spine normal to inspection Skin General skin exam: no rashes or lesions noted Neuro General: patient oriented x3, no focal motor deficits and normal sensation to monofilament Cranial nerves: Yes Equal, round and reactive pupils present Cognition (Neuro): normal cognition Speech: No Abnormal speech present Gait exam (Neuro): Normal gait present Motor exam (neuro): 5/5 motor strength present throughout Extrem General: Yes normal to inspection Course Course Course Narrative: The patient does not want to remain in the hospital for additional testing. I did speak to Gastroenterology on-call who tells me the patient can follow up outpatient if he is asymptomatic. Patient reports he has no abdominal pain. His abdomen is soft nontender. Reports no fevers or vomiting. He reports feeling better after taking 48 hours of Augmentin for his diverticulitis. I do believe his abdominal pain was likely secondary diverticulitis and not from this abnormal finding on his CT scan. I reviewed his CT scan finding with him and his daughter at the bedside. Explained to them that we can not rule out a pancreatic lesion. Patient will need MRI and possibly MRCP outpatient. I also explained to him his of liver enzymes are elevated and he should avoid alcohol and Tylenol at home. He will return to the emergency room for any worsening symptoms. Medical Decision Making Medical Decision Making MDM Narrative: This is a 69-year-old male who has a past medical history of HIV, hypertension, GERD, prostate cancer with radical prostatectomy by [facility] in December 2024 who presents to the emergency room with abdominal pain. Patient reports that he was seen here on . He was found to have diverticulitis and a CT scan that was concerning for common bile duct dilation, pancreatic duct dilation in addition to a lesion in the right kidney. Radiology had recommendations for the patient to have an MRI of the abdomen with and without IV contrast and an MRCP. Patient reports that he left against medical advice as he needed to go home to get his groceries. He was discharged home with Augmentin 875 b.i.d.. He reports his abdominal pain is improving. He has no reports of nausea, vomiting, diarrhea, fevers or chills. Does have complaints of total body itching with taking the Augmentin but no body rash. Abdomen soft/nontender Will need labs, UA, GI consultation and/or admission Differential Diagnosis Differential Diagnoses: The differential diagnosis associated with the presentation includes CBD dilation, pancreatic duct dilation which may be secondary to pancreatic lesion Renal lesion which may be secondary to infection/pyelp, mass or infarct Diverticulitis Admission/Observation Consideration of admission/observation: Escalation of care including admission/observation considered see course of care Consult Healthcare Provider Management of the patient was discussed with: [facility] and Primary Care Provider [id number] spoke to Dr Macias from GI. Recommended sending hepatitis panel, tylenol and salycilate levels. If patient is asymptomatic can have tests done outpatient by PCP. If symptomatic should be admitted. Patient abdomen soft nontender. Overall he feels better. I will close the loop with his family 1205-Dr Fritz. We discussed the patient. He will order outpatient MRI and MRCP as well as repeat liver enzymes for next week. Lab Data MDM Lab Attestation statement: I reviewed the patient's lab results. 02/21/25 10:16 02/21/25 10:16 Labs: Lab Results 02/21/25 Range/Units 10:16 WBC 5.3 (4.8-10.8) X10*3/uL RBC 5.14 (4.60-5.80) X10*6/uL Hgb 15.9 (14.0-18.0) g/dl Hct 47.0 (42.0-52.0) % MCV 91.4 (80.0-98.0) fL MCH 30.9 (27.0-33.0) pg MCHC 33.8 (31.0-36.0) g/dl RDW 12.8 (11.0-16.0) % Plt Count 144 L (160-400) X10*3/uL MPV 9.8 (9.4-12.4) fL Immature Gran % (Auto) 1.1 H (0.0-0.4) % Neut % (Auto) 77.2 H (45-73) % Lymph % (Auto) 10.1 L (20-40) % Laurens % (Auto) 7.6 (2-11) % Eos % (Auto) 3.4 (0-4) % Baso % (Auto) 0.6 (0-2) % Lymph # (Auto) 0.5 L (1.2-4.9) X10*3/uL [place]rens # (Auto) 0.4 (0.1-1.2) X10*3/uL Eos # (Auto) 0.2 (0.0-0.4) X10*3/uL Baso # (Auto) 0.0 (0.0-0.2) X10*3/uL Abs Immat Gran (auto) 0.06 H (0.00-0.03) X10*3/uL Absolute Neuts (auto) 4.1 (2.0-8.3) x10*3/uL Absolute Nucleated RBC 0.030 H (0.0-0.012) X10*3/uL Nucleated RBC % (auto) 0.6 H (0.0-0.2) /100WBC Sodium 142 (135-145) mmol/L Potassium 3.9 (3.3-5.1) mmol/L Chloride 109 H (96-108) mmol/L Carbon Dioxide 21 L (22-29) mmol/L Anion Gap 16 (12-20) BUN 16 (9-16) mg/dL Creatinine 1.40 (0.5-1.4) mg/dL Estim Creat Clear Calc 46.8 Estimated GFR 50 Random Glucose 102 (60-115) mg/dL Calcium 9.8 (8.4-10.2) mg/dL Total Bilirubin 2.9 H (0.0-1.0) mg/dL Direct Bilirubin 1.8 H (0.0-0.5) mg/dL AST 150 H (5-37) U/L ALT 478 H (0-40) U/L Alkaline Phosphatase 141 H (39-117) U/L Total Protein 7.7 (6.5-8.0) g/dL Albumin 4.6 (3.5-5.0) g/dL Lipase 43 (8-78) U/L Independent Historian Clinical information obtained from an independent historian. History obtained from or confirmed by: Other (Daughter) External Record Review External record reviewed: Outside ED record Prescription Management I considered prescription management with: Pain Medication Critical Care Time Critical Care Time Critical Care Time: Yes Total Critical Care Time: 90 Attestation: discussion with patient and family, discussion with GI and PCP Time is exclusive of separately billable procedures. Time includes: direct patient care, patient reassessment, coordination of patient care, interpretation of data, review of patient's medical records, medical consultation and documentation of patient care. Discharge Plan Discharge Clinical Impression: Abdominal pain Patient Disposition: Home, Self-Care Instructions: Abdominal Pain (ED) Additional Instructions: Continue your antibiotic Your CT scan from 02/19 shows a dilated pancreatic duct and dilated common bile duct. Your liver enzymes are also elevated. The radiologist recommends that you have an outpatient MRI and/or MRCP. We also spoke to the catheterization laboratory technician who felt that this could be done outpatient. We spoke to your primary care doctor on-call (Dr Fritz) who is arranging this. Please call the office on Sunday to find out more information about when these tests will occur In the meantime return for worsening abdominal pain, vomiting or fever Avoid alcohol and Tylenol Prescriptions: No Action rosuvastatin 5 mg tablet 5 mg PO DAILY clonazepam 1 mg tablet 1 mg PO BEDTIME PRN (Reason: Anxiety) amoxicillin-pot clavulanate 875-125 mg tablet 1 tab PO BID 7 Days Qty: 14 0RF Biktarvy 50-200-25 mg tablet 1 tab PO QAM omeprazole 20 mg capsule,delayed release(DR/EC) 20 mg PO DAILY hydrochlorothiazide 12.5 mg tablet 12.5 mg PO DAILY losartan 100 mg tablet 100 mg PO DAILY clonazepam 0.5 mg tablet 0.5 mg PO DAILY cholecalciferol (vitamin D3) 50 mcg (2,000 unit) capsule 50 mcg PO DAILY sildenafil [Viagra] 100 mg tablet 100 mg PO DAILY PRN (Reason: Erectile Dysfunction) cyclobenzaprine 10 mg tablet 10 mg PO TID Referrals: Name,MD Federico [Primary Care Provider, Internal Medicine] - 2 days Interventions: ED Discharge Assessment Last Done: 02/21/25 12:53 Discharge Date/Time: 02/21/25 12:54 Print Language: Northern Irish
[2025-02-21 10:39] LABS: Mean Corpuscular HGB Conc 33.8 g/dl (31.0-36.0); Mean Corpuscular Hemoglobin 30.9 pg (27.0-33.0)
[2025-02-21 10:40] LABS: Hematocrit 47.0 % (42.0-52.0); Hemoglobin 15.9 g/dl (14.0-18.0); Imm Gran Abs Auto 0.06 X10*3/uL (0.00-0.03); Imm Gran Pct Auto 1.1 % (0.0-0.4); Lymphocytes Absolute Auto 0.5 X10*3/uL (1.2-4.9); Mean Corpuscular Volume 91.4 fL (80.0-98.0); NRBC Abs Auto 0.030 X10*3/uL (0.0-0.012); NRBC Pct Auto 0.6 /100WBC (0.0-0.2); Red Blood Count 5.14 X10*6/uL (4.60-5.80)
[2025-02-21 10:43] LABS: Platelet Count 144 X10*3/uL (160-400); White Blood Count 5.3 X10*3/uL (4.8-10.8)
[2025-02-21 11:01] LABS: Alanine Aminotransferase 478 U/L (0-40); Albumin Level 4.6 g/dL (3.5-5.0); Alkaline Phosphatase 141 U/L (39-117); Anion Gap 16 (12-20); Aspartate Amino Transferase 150 U/L (5-37); Blood Urea Nitrogen 16 mg/dL (9-16); Calcium 9.8 mg/dL (8.4-10.2); Carbon Dioxide 21 mmol/L (22-29); Chloride 109 mmol/L (96-108); Creatinine Clr Calc Pharmacy 46.8; Estimated Glomerular Filt Rate 50; Lipase 43 U/L (8-78); Potassium 3.9 mmol/L (3.3-5.1); Sodium 142 mmol/L (135-145); Total Protein 7.7 g/dL (6.5-8.0)
--- OUTSIDE RECORDS SUMMARY | 2025-02-21 11:15 | XMS_ITS | Clinical Summary ---
Author Organization [address] [facility] Address [address] [place] [address] Phone Care Team Providers Care Return To Vendor Name Role Phone Unavailable Primary Care Provider [...]
--- OUTSIDE RECORDS SUMMARY | 2025-02-21 11:15 | XMS_ITS | Encounter Summary ---
Author Organization [facility] Address [address] [place] [address] Care Team Providers Care Gas Utility Worker Name Role Phone Unavailable Primary Care Provider Unavailabl e Encounter Details Date Type Department Care Team (Late st Contact Info) Description 04/02/2024 Lab Requisition [facility] - Main Lab [address] [place] [address] Akbar Gonzalez MD [address] [place] [address] Elevated prostate specific antigen (PSA) [...] (04/01/2024) Final Diagnosis A. Prostate, Left [place] (Core Biospy): - Benign prostate tissue. B. Prostate, Left Lateral [place] (Core Biospy): - Benign Prostate tissue. C. Prostate, Left Middle Middle (Core Biospy): - Prostatic acinar adenocarcinoma, grade group 1, Guadalupe score (3+3=6). - Tumor continuously involves 20% [...] Benign prostate tissue. I. Prostate, Right [place] (Core Biospy): - Benign stroma only. J. Prostate, Right Lateral [place] (Core Biospy): - Benign prostate tissue. K. Prostate, Right Middle Middle (Core Biospy): - Benign prostate tissue. L. Prostate, Right Lateral Middle (Core Biospy): - Benign prostate tissue. M. Prostate, Right Middle Base (Core Biospy): - Prostatic acinar adenocarcinoma, grade group 3, [place] score (4+3=7). - Percentage pattern 4: 70%. - Tumor continuously involves 60% of 1 of 1 tissue core. - PIN4 supports diagnosis. N. Prostate, Right Lateral Base (Core Biospy): - Prostatic acinar adenocarcinoma, grade group 3, [place] score (4+3=7). - Percentage pattern 4: 30%. - Tumor continuously involves 30% of 1 of 1 tissue core. O. Prostate, Right Peripheral Zone Lesion (Core Biopsy): - Prostatic acinar adenocarcinoma, grade group 3, [place] score (4+3=7). - Percentage pattern 4: 90%. - Tumor continuously involves 0,0,30% of 1 of 3 tissue cores. - High grade prostatic intraepithelial neoplasia (HGPIN). 04/09/2024 9:[address] [facility] Comment PIN4 performed at [facility], [address], [place] [address], CLIA # [id number] 04/09/2024 9:[address] [facility] Clinical Information Elevated PSA R97.20 PSA: 7.5 (02/11/24) [id number] 04/09/2024 9:[address] [facility] Gross Description A. Prostate, Left [place] Biopsy: Received, properly labeled, are two H and E stained slides and two unstained slides. B. Prostate, Left Lateral [place] Biopsy: Received, properly labeled, are two H [...] two unstained slides. I. Prostate, Right [place] Biopsy: Received, properly labeled, are two H and E stained slides and two unstained slides. J. Prostate, Right Lateral [place] Biopsy: Received, properly labeled, are two H [...] two unstained slides. /al 04/09/2024 9:[address] [facility] Disclaimer Unless otherwise specified, all tissue is 10% NB formalin fixed and paraffin embedded. Technical pathology services provided by [facility] at [address] [place] [address] [address], [place] [address] (CLIA #[id number]/Karen Cantrell MD, Lithographic Press Operator) 04/09/2024 9:[address] [facility] Tissue Prostate / Unknown 04/01/20242023 [...] 04/01/2024 04/02/2024 3: 49 PM EST us Abkar Gonzalez MD LAB PATHOLOGY ORDERABLES Final Result [facility] [address] [place] [address], documented in this encounter Visit Diagnoses Diagnosis Elevated prostate specific antigen (PSA) documented in this encounter
[2025-02-21 12:53] VITALS: BP 00/00; PULSE 0; RESP 0; TEMP -17.7; TEMP 0
[2025-02-21 13:13] LABS: Acetaminophen LAB < 3 mcg/mL (<30); Salicylate < 5.0 mg/dL (15-30)
[2025-02-23 05:44] LABS: HBS Num1 0.23 mIU/mL (0-7.99); HBc Num1 0.17 S/CO (0.00-0.79); HBsAGNum1 0.45 S/CO (0.00-0.99); Hepatitis A Antibody IgM 0.29 Index (0-0.79); Hepatitis B Surface Antigen Negative (Negative); ~HepC Num1 0.12 S/CO (0.00-0.79); ~Hepatitis A Antibody IgM Nonreactive (Nonreactive); ~Hepatitis B Surface Antibody NONREACTIVE (Nonreactive); ~Hepatitis C Antibody Nonreactive (Nonreactive)
== END 2025-02-21 12:54 | disposition home or self-care (01) ==
PROVIDERS: Nurse Practitioner Family; Emergency Provider Emergency Medicine Emergency Medical Services; PCP Internal Medicine Geriatric Medicine
DX: R10.9 Unspecified abdominal pain (principal); I10 Essential (primary) hypertension; K21.9 Gastro-esophageal reflux disease without esophagitis; Z85.46 Personal history of malignant neoplasm of prostate; Z98.890 Other specified postprocedural states; B20 Human immunodeficiency virus [HIV] disease; Z79.899 Other long term (current) drug therapy
CPT/HCPCS: 36415; 80053; 80143; 80179; 82248; 83690; 85025; 86704; 86706; 86709; 86803; 87340; 99283; 99284

== ENCOUNTER 2025-03-06 08:07 | Outpatient (REF) | payer OTHER, SELFPAY ==
--- NOTE | ~2025-03-06 | MR_ITS ---
EXAMINATION: MR ABDOMEN WITHOUT THEN WITH IV CONTRAST HISTORY: ELEVATED LFT'S COMPARISON: Previous CT of the abdomen and pelvis and limited abdominal ultrasound February 19, 2025 TECHNIQUE: Axial in and out of phase T1-weighted gradient echo, axial diffusion weighted, and axial and coronal HASTE T2 with fat saturation images were obtained through the abdomen. Subsequently, fat suppressed axial and coronal T1-weighted images were obtained after the intravenous administration of 8.5 mL Gadavist. FINDINGS: Liver: There is loss of signal intensity in the liver on opposed phase imaging suggestive of steatosis. There are 2 complex cysts with septations in the lateral segment of the left lobe the liver segment 2 measuring 9 x 14 mm and 5 x 7 mm for example axial image 9 series 5.. The hepatic and portal veins are patent. There is no intrahepatic biliary dilatation. Gallbladder/biliary tree: Gallbladder is normal-appearing. No gallstones are identified. The common bile duct is normal in caliber. No intraluminal filling defects are identified to suggest choledocholithiasis. No extrahepatic biliary duct dilatation. Common bile duct measures 7 mm which is upper normal. Gallbladder and biliary duct dilatation appears decreased compared to prior CT. Spleen: The spleen is upper normal in size measuring 13 cm in length. No focal lesion.. There is a splenule. Pancreas: There is no enhancing pancreatic mass. The distal main pancreatic duct is minimally dilated in the head of the pancreas measuring up to 4 mm. There are areas of narrowing of the main pancreatic duct in the head of the pancreas questionable for strictures. The main pancreatic duct in the head of the pancreas is tortuous. No filling defect in the main pancreatic duct is seen. Adrenals: The adrenal glands are unremarkable. Kidneys: There are bilateral renal cysts. Largest measures 1.5 cm in the left kidney. No suspicious renal mass. No signal abnormality in the lower pole of the right kidney to correspond to the questionable CT findings on February 19, 2025 exam. There is no hydronephrosis. Lymph nodes: There is no retroperitoneal lymphadenopathy in the upper abdomen. Fluid: There is no ascites in the upper abdomen. Visualized bowel: Diverticulosis of the colon. The visualized small and large bowel loops are otherwise unremarkable in appearance. Visualized bones: Degenerative changes of the spine. Small ventral or umbilical hernia containing fat slightly to the left of midline. MR/MR abdomen wo/w con IMPRESSION: Normal gallbladder and bile ducts. Gallbladder and common bile duct are no longer dilated. Mild dilatation of the distal main pancreatic duct in the head of the pancreas. The distal duct is very tortuous and there are areas of mild narrowing or stricture. No filling defect or pancreatic mass. Consider MRCP imaging follow-up in 1 year. Fatty liver. Liver and bilateral renal cysts. No renal mass. Electronically signed by: Britney Vázquez MD 03/06/2025 10:25 AM [facility]
--- OUTSIDE RECORDS SUMMARY | 2025-03-06 08:19 | XMS_ITS | Encounter Summary ---
Author Organization [facility] Address [address] [place] [address] Care Team Providers Care Trucking Manager Name Role Phone Unavailable Primary Care Provider Unavailabl e Encounter Details Date Type Department Care Team (Late st Contact Info) Description 04/02/2024 Lab Requisition [facility] - Main Lab [address] [place] [address] Akbar Gonzalez MD [address] [place] [address] Elevated prostate specific antigen (PSA) [...] (04/01/2024) Final Diagnosis A. Prostate, Left Middle Carson ([facility]): - Benign prostate tissue. B. Prostate, Left Lateral Carson ([facility]): - Benign Prostate tissue. C. Prostate, Left Middle Middle ([facility]): - Prostatic acinar adenocarcinoma, grade group 1, Guadalupe score (3+3=6). - Tumor continuously involves 20% of 1 of 1 tissue core. D. Prostate, Left Lateral Middle ([facility]): - Prostatic acinar adenocarcinoma, grade group 1, Lakemont score (3+3=6). - Tumor continuously involves 5% [...] Benign prostate tissue. I. Prostate, Right Middle Carson ([facility]): - Benign stroma only. J. Prostate, Right Lateral Carson ([facility]): - Benign prostate tissue. K. Prostate, Right Middle Middle ([facility]): - Benign prostate tissue. L. Prostate, Right Lateral Middle ([facility]): - Benign prostate tissue. M. Prostate, Right Middle Base ([facility]): - Prostatic acinar adenocarcinoma, grade group 3, Lakemont score (4+3=7). - Percentage pattern 4: 70%. - Tumor continuously involves 60% of 1 of 1 tissue core. - PIN4 supports diagnosis. N. Prostate, Right Lateral Base ([facility]): - Prostatic acinar adenocarcinoma, grade group 3, Guadalupe score (4+3=7). - Percentage pattern 4: 30%. - Tumor continuously involves 30% of 1 of 1 tissue core. O. Prostate, Right Peripheral Zone Lesion ([facility]): - Prostatic acinar adenocarcinoma, grade group 3, Lakemont score (4+3=7). - Percentage pattern 4: 90%. - Tumor continuously involves 0,0,30% of 1 of 3 tissue cores. - High grade prostatic intraepithelial neoplasia (HGPIN). 04/09/2024 9:26 AM [facility] Comment PIN4 performed at [facility], [address], [place] [address], CLIA # [id number] 04/09/2024 9:26 AM [facility] Clinical Information Elevated PSA R97.20 PSA: 7.5 (02/11/24) [id number] 04/09/2024 9:26 AM [facility] Gross Description A. Prostate, Left Middle Carson Biopsy: Received, properly labeled, are two H and E stained slides and two unstained slides. B. Prostate, Left Lateral Carson Biopsy: Received, properly labeled, are two H [...] two unstained slides. I. Prostate, Right Middle Carson Biopsy: Received, properly labeled, are two H and E stained slides and two unstained slides. J. Prostate, Right Lateral Carson Biopsy: Received, properly labeled, are two H [...] two unstained slides. /al 04/09/2024 9:26 AM [facility] Disclaimer Unless otherwise specified, all tissue is 10% NB formalin fixed and paraffin embedded. Technical pathology services provided by [facility] at [address] [place] [address] [address], [place] [address] (CLIA #[id number]/Karen Cantrell MD, Fleet Technician) 04/09/2024 9:26 AM [facility] Tissue Prostate / Unknown 04/01/20242023 [...] Gonzalez MD LAB PATHOLOGY ORDERABLES Final Result [facility] ([facility] [address] [place] [address], documented in this encounter Visit Diagnoses Diagnosis Elevated prostate specific antigen (PSA) documented in this encounter
--- OUTSIDE RECORDS SUMMARY | 2025-03-06 08:19 | XMS_ITS | Clinical Summary ---
Author Organization [address] [facility] Address [address] [place] [address] Phone Care Team Providers Care Weeder Thinner Name Role Phone Unavailable Primary Care Provider [...]
== END 2025-03-06 08:08 | disposition home or self-care (01) ==
LOC: HO.MRI 08:07
PROVIDERS: PCP Internal Medicine Geriatric Medicine; Visit Provider Emergency Medicine
DX: R79.89 Other specified abnormal findings of blood chemistry (principal); R93.5 Abnormal findings on diagnostic imaging of other abdominal regions, including retroperitoneum
CPT/HCPCS: 74183; A9585

== ENCOUNTER → 2025-03-06 08:40 | Outpatient (BNV) | payer OTHER, SELFPAY | PROVIDERS: PCP Internal Medicine Geriatric Medicine; Visit Provider Radiology Diagnostic Radiology | DX: R74.01 Elevation of levels of liver transaminase levels (principal) | CPT/HCPCS: 74183 ==